=== PATIENT | female | born 1990 | race Caucasian/White ===

== ENCOUNTER 2019-08-13 10:27 | Emergency (ER) | payer BC, SELFPAY ==
[2019-08-13 10:32] VITALS: BP 146/93; PULSE 73; RESP 19; TEMP 36.1; O2SAT 100
[2019-08-13 11:48] VITALS: BP 139/87; PULSE 67; RESP 17; O2SAT 99
[2019-08-13] MEDS: ONDANSETRON INJ 4 MG/2 ML VIAL IV PUSH (12:02)
[2019-08-13] MEDS: MORPHINE SULFATE 2 MG/ML INJ IV PUSH (12:02)
--- NOTE | 2019-08-13 12:11 | PM.CNGS ---
Assessment and Plan Assessment and plan (1) Laceration of right breast: Qualifiers: Encounter type: initial encounter Qualified Code(s): S21.011A - Laceration without foreign body of right breast, initial encounter Code(s): S21.011A - Laceration without foreign body of right breast, initial encounter Status: Acute Assessment and Plan: superficial wounds as noted, wound to be washout in ED, IV abx and then po abx x 10 days, instructions given for local wound care, f/u 10 days (2) Laceration of left forearm: Qualifiers: Encounter type: initial encounter Qualified Code(s): S51.812A - Laceration without foreign body of left forearm, initial encounter Code(s): S51.812A - Laceration without foreign body of left forearm, initial encounter Status: Acute Assessment and Plan: superficial wounds, wound to be washed out in ED, IV then po abx x 10 days, instructions for local wound care, f/u 10 days History of Present Illness Consult details Consult date: 08/13/19 Reason for consult: wound care (right nipple laceration) Narrative: Pt is a 29 y/o F presenting to ED s/p dog bite to L forearm and R nipple. Pt reports bite happened this am and she immediately washed wounds. Pt reports she is up to date on tetnus, etc. Review of Systems Constitutional: Constitutional: Denies anorexia, Denies chills, Denies fatigue, Denies headache(s), Denies malaise, Denies poor appetite, Denies weight gain and Denies weight loss Eyes: Eyes: Denies loss of vision ENT: Denies dysphagia, Denies headache(s), Denies hearing loss and Denies sore throat Cardiovascular: Cardiovascular: Denies chest pain, Denies syncope, Denies irregular heart rhythm, Denies leg edema and Denies dyspnea Respiratory: Respiratory: Denies cough and Denies dyspnea Gastrointestinal: Gastrointestinal: Denies abdominal pain, Denies bloating, Denies change in bowel habits, Denies change in stool character, Denies constipation, Denies dysphagia, Denies heartburn, Denies diarrhea, Denies nausea and Denies vomiting Genitourinary: Genitourinary: Denies urinary frequency, Denies dysuria and Denies urinary urgency Musculoskeletal: Musculoskeletal: Denies myalgias, Denies arthralgias and Denies muscle cramps Integumentary/Breasts: Skin/Breast: Denies non-healing lesions and Denies rash Comments: laceration/bite to R nipple/areolar complex Neurologic: Denies syncope, Denies headache(s) and Denies loss of vision Endocrine: Endocrine: Denies change in body appearance and Denies fatigue Hematologic/Lymphatic: Hematologic/Lymphatic: Denies easy bleeding, Denies easy bruising and Denies lymphadenopathy PMFSH Family History Family History Father Hypertension Mother Patient's mother is in good health Grandparent Acute myocardial infarction Family history of chronic obstructive pulmonary disease Family history of lymphoma Family history of throat cancer Social History Social History Smoking status: Light tobacco smoker Alcohol intake: current Meds Home Medications and Allergies Home Medications Medication Instructions Recorded Confirmed Type levothyroxine 100 mcg tablet 100 mcg PO DAILY #30 tablet 07/05/19 Rx Allergies Allergy/AdvReac Type Severity Reaction Status Date / Time No Known Allergies Allergy Verified 12/30/17 15:40 Vital Signs Vital Signs - 24 hr 08/13/19 10:32 08/13/19 11:48 Temperature 36.1 C L Pulse Rate 73 67 Respiratory Rate 19 17 Blood Pressure 146/93 H 139/87 Pulse Oximetry 100 99 Exam Const: General: cooperative, no acute distress and well developed Orientation/consciousness: patient oriented x3 HENMT: Head: normocephalic and atraumatic Mouth: Yes moist mucous membranes Teeth and gingiva: dentition normal Eyes: Pupils: Equal, round and reactive pupils present
--- NOTE | 2019-08-13 12:25 | ED.WOUNDLAC ---
HPI - Wound/Laceration General Chief Complaint: Wound/Laceration Stated Complaint: dog bite Time Seen by Provider: 08/13/19 11:12 Source: patient Mode of arrival: ambulatory Limitations: no limitations History of Present Illness HPI narrative: Patient presents with chief complaint of laceration on her left forearm into her right nipple after being bitten by her own dog. Patient says she is up-to-date on tetanus and her dog is up-to-date on all vaccinations. Patient reports pain and bleeding to the nipple area along with nausea. Patient reports pain to the area and nausea due to the pain. Patient denies any other injuries or concerns. Patient denies any allergies to any antibiotics. Patient denies . Related Data Allergies Allergy/AdvReac Type Severity Reaction Status Date / Time No Known Allergies Allergy Verified 12/30/17 15:40 Review of Systems Review of Systems: Narrative: CONSTITUTIONAL: Denies fever, chills, or sweats. EYES: Denies visual changes, redness, or discharge. ENT: Denies rhinorrhea, congestion, sore throat, or otalgia. CARDIOVASCULAR: Denies chest pain, palpitations, or edema. RESPIRATORY: Denies cough or dyspnea. GASTROINTESTINAL: Denies abdominal pain, nausea, vomiting, or diarrhea. GENITOURINARY: Denies dysuria or hematuria. SKIN: Reports dog bite laceration Denies rash or itching. MUSCULOSKELETAL: Denies back pain, joint pain, or myalgia. NEUROLOGIC: Denies headache, numbness, dizziness, or weakness. PSYCHIATRIC: Denies anxiety or depression. [facility] Past Medical History Medical History (Updated 08/13/19 @ 12:32 by David Galvez PA-C) Anxiety Hypothyroidism Family History Family History Father Hypertension Mother Patient's mother is in good health Grandparent Acute myocardial infarction Family history of chronic obstructive pulmonary disease Family history of lymphoma Family history of throat cancer Social History Social History Smoking status: Light tobacco smoker Alcohol intake: current Exam Narrative: Exam Narrative: GENERAL: Well-appearing, well-nourished, and in no acute distress. HEAD: Normocephalic, atraumatic. EYES: PERRLA and EOMI. ENT: Nares clear, no rhinorrhea or epistaxis. Mucous membranes moist. Oropharynx without tonsillar hypertrophy exudate or other lesions. Bilateral TMs pearly meade nonbulging. No hemotypanum. NECK: Supple. No adenopathy or masses. No carotid bruits or JVD CHEST: two vertical unapproximated lacerations approximately 2cm each to right nipple. 1 extending through the nipple. No active bleeding. lacerations superficial. No respiratory distress. No tachypnea. ABDOMEN: Soft, nontender, nondistended, normal active bowel sounds. EXTREMITIES: Normal range of motion. No edema. SKIN: Warm, dry, no rash. NEURO: No focal deficits. Alert and oriented x3. PSYCH: Normal mood and affect. Course Vital Signs Vital signs: Vital Signs Temperature 97.0 F L 08/13/19 10:32 Pulse Rate 73 08/13/19 10:32 Respiratory Rate 19 08/13/19 10:32 Blood Pressure 146/93 H 08/13/19 10:32 Pulse Oximetry 100 08/13/19 10:32 Temperature 97.0 F L 08/13/19 10:32 Pulse Rate 67 08/13/19 11:48 Respiratory Rate 17 08/13/19 11:48 Blood Pressure 139/87 08/13/19 11:48 Pulse Oximetry 99 08/13/19 11:48 MDM - Wound/Laceration MDM Narrative Medical decision making narrative: In room consult with Dr Dave general surgeon. He reports patient should cleanse the area with antibacterial soap and apply antibacterial ointment. He believes that the best course of action for healing is to allow the wound to heal normally to avoid complication of abscess due to closing. He wants the patient to be prescribed Augmentin for 10 days and to follow-up in his office for reevaluation of wound healing. He is in agreement with [facility] in the emergency departme
[2019-08-13] MEDS: ceFAZolin 2 GM/D5W 50 ML 2 GM/50 ML BAG IVPB (12:32)
[2019-08-13 13:22] VITALS: BP 141/89; PULSE 60; RESP 16; O2SAT 98
== END 2019-08-13 13:24 | disposition home or self-care (01) ==
PROVIDERS: Emergency Provider Emergency Medicine; PCP Family Medicine
DX: S51.852A Open bite of left forearm, initial encounter (principal); S21.051A Open bite of right breast, initial encounter; E03.9 Hypothyroidism, unspecified; W54.0XXA Bitten by dog, initial encounter
CPT/HCPCS: 81025; 96365; 96375; 99284; J0690; J2270; J2405

== ENCOUNTER 2020-04-22 00:56 | Outpatient (CLI) | payer BC, SELFPAY ==
[2020-04-22 19:42] LABS: SARS-CoV-2 RNA PCR Negative
== END 2020-04-22 00:57 | disposition home or self-care (01) ==
LOC: ANHCOVIDDT 00:57
PROVIDERS: PCP Family Medicine; Visit Provider Obstetrics & Gynecology
DX: Z01.812 Encounter for preprocedural laboratory examination (principal); Z20.822 Contact with and (suspected) exposure to COVID-19
CPT/HCPCS: C9803; U0003

== ENCOUNTER 2020-04-23 01:45 | Day surgery (SDC) | payer BC, SELFPAY ==
[2020-04-21 16:36] VITALS: BMI 36.8
--- NOTE | 2020-04-22 10:29 | P.PNAN_ITS ---
Anes - Initial Pre Proc Eval Procedure: Operation Date: 04/23/20 16:15 Proposed Procedures p Suction Dilatation And Curettage - Cortes Sun MD Date/Time: 04/22/20 10:29 Surgeon: Cortes Sun MD Pre Op Diagnosis: Missed Ab Patient Data Age: 30 Gender: F Height: 1.69 m Weight: 105.23 kg Allergies Allergy/AdvReac Type Severity Reaction Status Date / Time No Known Allergies Allergy Verified 04/23/20 14:07 Home Medications Medication Instructions Recorded Confirmed Type levothyroxine 100 mcg tablet 100 mcg PO DAILY #30 tablet 04/14/20 04/21/20 Rx 1 cap PO DAILY 04/21/20 04/21/20 History escitalopram oxalate 20 mg PO DAILY 04/21/20 04/21/20 History ondansetron HCl 4 mg PO DAILY PRN 04/21/20 04/21/20 History progesterone micronized 200 mg PO DAILY 04/21/20 04/21/20 History Patient hx anesthesia problems: none Family hx anesthesia problems: none [facility] Past Medical History Medical History Anxiety Asthma Hypothyroidism Family History Family History Father Hypertension Mother Patient's mother is in good health Grandparent Acute myocardial infarction Family history of chronic obstructive pulmonary disease Family history of lymphoma Family history of throat cancer Social History Social History Years smoked: 8 Smoking status: Former smoker Smoking end date: 04/18/19 Additional smoking assessment comments: SMOKED FOR 8 YEARS AND QUIT ABOUT A YEAR AGO Alcohol intake: current Substance use: current Substance use type: marijuana Other substance usage details: ONCE A/WEEK WHEN NOT Living arrangements: with family Gender identity (if verbalized by the patient): Female Spiritual care concerns: No Anes - Eval Final PreProcedure Day of Procedure 04/22/20 10:29 Patient weight: obese Heart: regular rate and rhythm Lungs: clear to auscultation and normal air movement Airway: Mallampati scale class II Neurological: alert and oriented Last oral intake: >/= 8 hours ASA classification: III Emergent: no Anesthetic plan: proceed Anesthesia type and monitoring: general GIVS and standard monitoring Informed Consent: The patient's anesthetic plan and its attendant risks and benefits were discussed with the patient/family/POA. Questions were solicited and answers provided to the satisfaction of the patient/family/POA.
[2020-04-23 04:50] VITALS: BP 124/73; PULSE 59; RESP 16; TEMP 36.9; O2SAT 98
--- NOTE | 2020-04-23 12:16 | PM.IMHP ---
H&P: HPI History of Present Illness Date/Time: 04/23/20 12:16 Chief Complaint: Miscarriage Narrative: 30 y/o G1 at 9 weeks gestation. She had some vaginal bleeding. On ultrasound exam on 04/21/20, a triplet gestation was noted with no cardiac motion in any of the embryos. She is interested in surgical management of her problem. Review of Systems Review of Systems: All systems reviewed & are unremarkable except as noted in HPI and below PMFSH Past Medical History Medical History Anxiety Asthma Hypothyroidism Family History Family History Father Hypertension Mother Patient's mother is in good health Grandparent Acute myocardial infarction Family history of chronic obstructive pulmonary disease Family history of lymphoma Family history of throat cancer Social History Social History Years smoked: 8 Smoking status: Former smoker Smoking end date: 04/18/19 Additional smoking assessment comments: SMOKED FOR 8 YEARS AND QUIT ABOUT A YEAR AGO Alcohol intake: current Substance use: current Substance use type: marijuana Other substance usage details: ONCE A/WEEK WHEN NOT Living arrangements: with family Gender identity (if verbalized by the patient): Female Spiritual care concerns: No Meds Home Medications and Allergies Home Medications Medication Instructions Recorded Confirmed Type levothyroxine 100 mcg tablet 100 mcg PO DAILY #30 tablet 04/14/20 04/21/20 Rx 1 cap PO DAILY 04/21/20 04/21/20 History escitalopram oxalate 20 mg PO DAILY 04/21/20 04/21/20 History ondansetron HCl 4 mg PO DAILY PRN 04/21/20 04/21/20 History progesterone micronized 200 mg PO DAILY 04/21/20 04/21/20 History Allergies Allergy/AdvReac Type Severity Reaction Status Date / Time No Known Allergies Allergy Verified 04/21/20 16:37 Exam Const: Orientation/consciousness: patient oriented x3 Other: Well-developed, well-nourished female in no acute distress. Neck: Thyroid: thyroid normal Lymphatic: no lymphadenopathy noted (in neck, axilla or inguinal nodes) Resp: Effort & Inspection: normal respiratory effort Auscultation: clear to auscultation bilaterally Cardio: Rate: regular rate Rhythm: regular rhythm Heart sounds: S1 normal heart sound present and S2 normal heart sound present GI: Other: ABD: Soft, nontender, nondistended. No guarding or rebound tenderness. No hepatosplenomegaly. : General: Yes no CVA tenderness Other: Deferred to OR Back/Spine/Pelvis: Back: no CVA tenderness Skin: General skin exam: normal color and no rashes or lesions noted Neuro: General: patient oriented x3 Extrem: Other: Extremities: nontender with no edema Psych: Mental Status: mental status grossly normal Affect: normal affect Assessment and Plan Assessment and plan (1) Missed : Code(s): O02.1 - Missed Status: Acute Assessment and Plan: I have offered her expectant vs surgical management. She desires the latter. Specifically, I have offered her a dilation and suction curettage. She understands risks of surgery to include risks of anesthesia, risks of pain, infection, bleeding, blood products, thromboembolic phenomena and damage to adjacent structures such as bowel, bladder, ureters, blood vessels and nerves. She understands all these risks and elects to proceed with surgery.
--- NOTE | 2020-04-23 14:26 | WPDHPUPDATE1 ---
History and Physical Update Update Date/Time: 04/23/20 14:26 History and Physical has been reviewed, including an updated exam of the patient. There are NO changes in the patient's condition. Risks, benefits, and alternatives have been discussed and questions answered. Patient agrees to proceed with procedure.
[2020-04-23] MEDS: ONDANSETRON INJ 4 MG/2 ML VIAL IV PUSH (14:45)
[2020-04-23] MEDS: LACTATED RINGERS 1,000 ML 30 ML IV CONT (14:45)
[2020-04-23] MEDS: ACETAMINOPHEN 500 MG TABLET 1000 MG PO (14:46)
--- NOTE | 2020-04-23 15:58 | PM.PROC ---
Procedure Note - Detailed Date of procedure: 04/23/20 Pre-op diagnosis: Missed Ab Post-op diagnosis: same Procedure performed: Dilation and suction curettage Description of procedure: The patient was taken to the operating room where she was prepared and draped in the usual sterile fashion in the dorsal lithotomy position. The bladder was drained with a red rubber catheter. A sterile speculum was placed into the vagina. The anterior lip of the cervix was grasped with a single-tooth tenaculum. Ten mL of 1% lidocaine was administered in a paracervical block. The cervix was gently dilated using Hegar dilators until an 8mm dilator could be passed. The 8mm curved tip suction curette was advanced. Suction curettage was performed and products of conception were aspirated. Sharp curettage was then performed until a good uterine cry was noted. A final pass with the suction curette was made. The tenaculum was removed. Hemostasis was excellent. Sponge, lap, needle and instrument counts were correct. The patient was taken to the recovery room in stable condition. I was present and scrubbed for the entire procedure. Implants: None Anesthesia: MAC and local (1% lidocaine) Surgeon: Cortes Sun MD Estimated blood loss (mL): 200 Drains: No Packing: No Pathology: yes (endometrial curettings) Complications: None Condition: stable Disposition: PACU Findings: Products of conception noted.
[2020-04-23 16:05] VITALS: BP 120/72; PULSE 72; RESP 16; O2SAT 98
[2020-04-23 16:35] VITALS: BP 125/65; PULSE 68; RESP 14
== END 2020-04-23 17:05 | disposition home or self-care (01) ==
PROVIDERS: PCP Family Medicine; Visit Provider Obstetrics & Gynecology
PROC: (CPT 59820; principal; 2020-04-23 16:15)
DX: O02.1 Missed abortion (principal); E03.9 Hypothyroidism, unspecified; F41.9 Anxiety disorder, unspecified; Z87.891 Personal history of nicotine dependence
CPT/HCPCS: 59820; 36415; 85461; 88305; A9270; C9803; J1885; J2250; J2405; J2590; J2704; J3010; J7120; U0003

== ENCOUNTER 2020-04-30 02:55 | Day surgery (SDC) | payer BC, SELFPAY ==
[2020-04-29 13:13] VITALS: BMI 36.8
--- NOTE | 2020-04-29 15:39 | PM.IMHP ---
H&P: HPI History of Present Illness Date/Time: 04/29/20 15:40 Chief Complaint: retained products of conception abnormal uterine bleeding Narrative: Yesi Turcios is a 30 year old female Who presents for suction D&C for heavy vaginal bleeding. Patient initially underwent suction D&C on 04/23/23 spontaneous missed of triplet . Patient states she had 3-4 days of no bleeding after the procedure. She states that yesterday she started having bright red vaginal bleeding filling a pad every 30 minutes. She reports passing large clots. She also reports intense pelvic pain and cramping refractory to tramadol and Evergreen. Patient had pelvic ultrasound performed in the office which showed heterogenous material within the endometrial cavity. Review of Systems Cardiovascular: Cardiovascular: Denies chest pain, Denies leg edema, Denies palpitations, Denies dyspnea and Denies dyspnea on exertion Respiratory: Respiratory: Denies cough, Denies dyspnea and Denies dyspnea on exertion Gastrointestinal: Gastrointestinal: Denies abdominal pain, Denies constipation, Denies diarrhea, Denies nausea and Denies vomiting Genitourinary: Genitourinary: Denies hematuria, Denies urinary frequency, Denies dysuria, Denies pelvic pain, Denies urinary incontinence and Denies vaginal discharge Neurologic: Reports system reviewed and no additional complaints, except as documented Psychiatric: Psychiatric: Reports no additional psychiatric complaints Endocrine: Endocrine: Denies palpitations PMFSH Past Medical History Medical History (Updated 04/29/20 @ 15:42 by Douglas Almaguer MD) Anxiety Asthma Hypothyroidism Family History Family History Father Hypertension Mother Patient's mother is in good health Grandparent Acute myocardial infarction Family history of chronic obstructive pulmonary disease Family history of lymphoma Family history of throat cancer Social History Social History Smoking packs per day: 1 Smoking cigarettes per day: 20.0 Years smoked: 8 Smoking pack-years: 8.00 Smoking status: Former smoker Smoking end date: 02/17/20 Additional smoking assessment comments: SMOKED FOR 8 YEARS AND QUIT ABOUT A YEAR AGO Alcohol intake: current Drinks per week: 3 Substance use: never Substance use type: marijuana Other substance usage details: ONCE A/WEEK WHEN NOT Living arrangements: with family Additional living arrangements comments: [facility] Gender identity (if verbalized by the patient): Female Spiritual care concerns: No Meds Home Medications and Allergies Home Medications Medication Instructions Recorded Confirmed Type escitalopram oxalate 10 mg PO QAM 04/21/20 04/29/20 History ondansetron HCl 4 mg PO DAILY PRN 04/21/20 04/29/20 History hydrocodone-acetaminophen [Evergreen] 1 - 2 tablet PO Q6H PRN #20 tablet 04/23/20 04/29/20 Rx alprazolam [Xanax] 0.5 mg PO BID PRN 04/29/20 04/29/20 History levothyroxine 100 mcg PO QAM 04/29/20 04/29/20 History Allergies Allergy/AdvReac Type Severity Reaction Status Date / Time No Known Allergies Allergy Verified 04/29/20 13:09 Exam Const: General: no acute distress Eyes: EOM: EOMs intact bilaterally Neck: Neck: supple Thyroid: thyroid normal Chest: Breast/axilla inspection: normal inspection of the breasts Breast/axilla palpation: normal palpation of the breasts, normal palpation of the axillae and no axillary lymphadenopathy Resp: Effort & Inspection: normal respiratory effort Auscultation: clear to auscultation bilaterally Cardio: Rate: regular rate Rhythm: regular rhythm GI: Inspection: non-distended GI Palp: Yes Soft to palpation, No Tenderness to palpation present (GI) and No Guarding due to palpation present (GI) Auscultation:
[2020-04-30 06:11] VITALS: BP 126/78; PULSE 72; RESP 20; TEMP 36.6; O2SAT 98
[2020-04-30] MEDS: ACETAMINOPHEN 500 MG TABLET 1000 MG PO (06:12)
[2020-04-30] MEDS: DOXYCYCLINE HYCLATE 100 MG TABLET PO (06:14)
[2020-04-30] MEDS: LACTATED RINGERS 1,000 ML 30 ML IV CONT (06:25)
--- NOTE | 2020-04-30 06:38 | P.PNAN_ITS ---
Anes - Eval Final PreProcedure Day of Procedure 04/30/20 06:38 Patient weight: obese Heart: regular rate and rhythm Lungs: clear to auscultation Airway: Mallampati scale class II Neurological: alert and oriented Last oral intake: >/= 8 hours ASA classification: III Emergent: no Anesthetic plan: proceed Anesthesia type and monitoring: general GIVS and standard monitoring Informed Consent: The patient's anesthetic plan and its attendant risks and b enefits were discussed with the patient/family/POA. Questions were solicited and answers provided to the satisfaction of the patient/family/POA.
--- NOTE | 2020-04-30 07:20 | WPDHPUPDATE1 ---
History and Physical Update Update Date/Time: 04/30/20 07:20 History and Physical has been reviewed, including an updated exam of the patient. There are NO changes in the patient's condition. Risks, benefits, and alternatives have been discussed and questions answered. Patient agrees to proceed with procedure.
[2020-04-30 07:47] VITALS: BP 111/61; PULSE 80; RESP 14; O2SAT 100
[2020-04-30 07:47] LABS: Hematocrit 38.5 % (37.0-47.0); Hemoglobin 12.7 g/dL (12.0-15.0)
--- NOTE | 2020-04-30 07:49 | P.OP_ITS ---
Procedure Note - Detailed Date of procedure: 04/30/20 Pre-op diagnosis: missed AB Post-op diagnosis: same Procedure performed: Suction dilation and curettage Description of procedure: Antibiotics: Doxycycline Findings: uterus normal size, cervix not dilated, retained products of conception Complications: none Specimens: endometrial contents- products of conception EBL: 20 mL Indications: Patients was found to have an intrauterine MAB on pelvic US last week. She underwent suction D&C and presented one week post with pelvic pain and heavy vaginal bleeding. Pelvic US showed heterogeneous material still within the uterus. She elected for surgical management via Suction D&C. Procedure: The patient was taken to the operating room after a missed had been noted on on transvaginal ultrasound. The risks, benefits and alternatives of the procedure were reviewed with the patient and informed consent was obtained. The patient was taken to the OR and anesthesia was noted to be adequate. The patient was placed in the dorsol ithotomy position. Pelvic exam was performed with findings noted above. The patient was prepped and draped in the usual sterile fashion. Bassett retractors were placed anteriorly and posteriorly in the vagina and the cervix was grasped with an Tenaculum clamp. The cervix was dilated further to allow for passage of a 8mm suction curette. The 8mm suction curette was gently advanced to the fundus, suction was activated, and the tip was rotated while being withdrawn to clear the uterus of products all under ultrasound guidance. This suction process was repeated 4 additional times due to the quantity of material in the uterus. The sharp curette was introduced and advanced to the fundus to remove any remaining products. The suction curette was reintroduced one final time to ensure all products had been removed. The Tenaculum clamp was removed. Good hemostasis was noted. Instrument, sponge, and sharp counts were correct. Patient tolerated the procedure well and was taken to the recovery room in stable condition. Anesthesia: MAC Surgeon: Douglas Almaguer MD Estimated blood loss (mL): 20 Urine output (mL): 10 Drains: No Packing: No Pathology: yes (uterine contents, products of conception) Complications: No immediate complications Condition: stable Disposition: PACU
--- NOTE | 2020-04-30 08:05 | SUR.PHASEII ---
0747; PT INTO [facility] PER STRETCHER. SPOUSE WAITING IN ROOM.
[2020-04-30 08:15] VITALS: BP 122/71; PULSE 68; RESP 16; O2SAT 100
[2020-04-30] MEDS: DOXYCYCLINE HYCLATE 100 MG TABLET 200 MG PO (08:27)
[2020-04-30] MEDS: oxyCODONE HCL (*CRX) 5 MG TAB IR PO (08:30)
--- NOTE | 2020-04-30 08:37 | SUR.PHASEII ---
PT AWAKE AND ALERT. STATES SHE IS READY TO GO HOME. WANTS TO GET DRESSED.
[2020-04-30 08:40] VITALS: BP 123/75; PULSE 61; RESP 14
== END 2020-04-30 08:55 | disposition home or self-care (01) ==
PROVIDERS: PCP Family Medicine; Visit Provider Student in an Organized Health Care Education/Training Program
PROC: (CPT 59812; principal; 2020-04-30 07:30)
DX: O03.4 Incomplete spontaneous abortion without complication (principal); F41.9 Anxiety disorder, unspecified; E03.9 Hypothyroidism, unspecified
CPT/HCPCS: 59812; 36415; 85014; 85018; 88305; A9270; J2250; J2704; J3010; J7120

== ENCOUNTER 2020-11-27 08:03 | Emergency (ER) | payer BC, SELFPAY ==
--- NOTE | ~2020-11-27 | XR_ITS ---
EXAMINATION: XR chest 2V DATE: 11/27/2020 08:42 INDICATION: Cough TECHNIQUE: PA and lateral views of the chest are obtained. COMPARISON: None available FINDINGS: The lungs are free of acute opacities. There is no pleural effusion or pneumothorax. The ca rdiomediastinal silhouette is normal. The visualized bones and soft tissues are unremarkable. IMPRESSION: 1. No acute cardiopulmonary abnormality. Reviewed, dictated and finalized at location B.
[2020-11-27 08:10] VITALS: BP 140/88; PULSE 76; RESP 18; TEMP 37.1; O2SAT 98
--- NOTE | 2020-11-27 08:13 | ED.URI ---
HPI - URI/Sore Throat General Chief Complaint: Upper Respiratory Infection Stated Complaint: upper respiratory Time Seen by Provider: 11/27/20 08:20 Source: patient, RN notes reviewed and old records reviewed Mode of arrival: ambulatory Limitations: no limitations History of Present Illness HPI Narrative: 30 year old female who presents to [facility] care with complaints of cough,some wheezing since Tuesday with low grade grade temperatures below 100F for 4 days. Patient does have history of asthma and is using her Pro Air inhaler and taking Mucinex and saline nasal spray. Patient had rapid COVID test on Tuesday and PCR on Tuesday which was negative also. 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 MD elicited complaint: cough Pertinent past history: asthma Related Data Home Medications Medication Instructions Recorded Confirmed escitalopram oxalate 10 mg PO QAM 04/21/20 11/27/20 levothyroxine 100 mcg PO QAM 04/29/20 11/27/20 11/27/20 Allergies Allergy/AdvReac Type Severity Reaction Status Date / Time No Known Allergies Allergy Verified 11/27/20 08:27 Review of Systems Review of Systems: CONSTITUTIONAL: Low grade fevers < 100F, chills, or sweats. EYES: Denies visual changes, redness, or discharge. ENT: Positive rhinorrhea, congestion,no sore throat, positive otalgia. CARDIOVASCULAR: Denies chest pain, palpitations, or edema. RESPIRATORY: Positive for cough and wheezing, denies any acute dyspnea. GASTROINTESTINAL: Denies abdominal pain, nausea, vomiting, or diarrhea. GENITOURINARY: Denies dysuria or hematuria. SKIN: Denies rash or itching. MUSCULOSKELETAL: Denies back pain, joint pain, or myalgia. NEUROLOGIC: Denies headache, numbness, or weakness. PSYCHIATRIC: Positive history of anxiety or depression. All systems reviewed & are unremarkable except as noted in HPI and below PMFSH Past Medical History Medical History Anxiety Asthma Hypothyroidism Surgical History Surgical History History of placement of ear tubes History of tonsillectomy Family History Family History Father Hypertension Mother Patient's mother is in good health Grandparent Acute myocardial infarction Family history of chronic obstructive pulmonary disease Family history of lymphoma Family history of throat cancer Social History Social History (Updated 11/27/20 @ 08:45 by Layla Gardner NP) Smoking packs per day: 0.5 Smoking cigarettes per day: 10.0 Years smoked: 0.5 Smoking pack-years: 0.25 Smoking status: Current every day smoker Tobacco type: cigarettes Smoking end date: 02/17/20 Additional smoking assessment comments: SMOKED FOR 8 YEARS AND QUIT ABOUT A YEAR AGO started again about 6 months Alcohol intake: current Drinks per week: 3 Alcohol use details: social Substance use: never Substance use type: marijuana Other substance usage details: ONCE A/WEEK WHEN NOT Living arrangements: with family Additional living arrangements comments: [facility] Gender identity (if verbalized by the patient): Female Spiritual care concerns: No Comments At time of signature, agree with nursing past medical, surgical, social and family history. There is no relevant family history pertinent to the presenting complaint Exam Narrative: GENERAL: Well-appearing, well-nourished, and in no acute distress. HEAD: Normocephalic, atraumatic. EYES: PERRLA and EOMI. ENT: Nares red, yellow rhinorrhea no epistaxis. Mucous membranes moist. TM's normal with good light reflex, throat red with no lesions or exudate, no tonsils present, post nasal drainage. NECK: Supple.no Lymphadenopathy CHEST: Coarse with scattered wheezing on auscultation. No acute respiratory distr
== END 2020-11-27 09:17 | disposition home or self-care (01) ==
PROVIDERS: Emergency Provider Registered Nurse; PCP Family Medicine
DX: J01.90 Acute sinusitis, unspecified (principal); J45.41 Moderate persistent asthma with (acute) exacerbation; F17.210 Nicotine dependence, cigarettes, uncomplicated; F41.9 Anxiety disorder, unspecified; J45.909 Unspecified asthma, uncomplicated; E03.9 Hypothyroidism, unspecified
CPT/HCPCS: 71046; 99213; G0463

== ENCOUNTER → 2021-04-16 02:19 | Outpatient (CLI) | payer BC, SELFPAY ==
[2021-04-16 20:33] LABS: SARS-CoV-2 RNA PCR Negative
== END ==
PROVIDERS: PCP Family Medicine; Visit Provider Family Medicine
DX: R51.9 Headache, unspecified (principal); Z20.822 Contact with and (suspected) exposure to COVID-19
CPT/HCPCS: C9803; U0003; U0005

== ENCOUNTER 2021-07-01 09:14 | Outpatient (RCR) | payer BC, SELFPAY | END 2021-08-04 14:28 | disposition home or self-care (01) | LOC: ANHDMC 09:14 | PROVIDERS: PCP Family Medicine; Visit Provider Obstetrics & Gynecology | DX: O24.319 Unspecified pre-existing diabetes mellitus in pregnancy, unspecified trimester (principal); Z3A.00 Weeks of gestation of pregnancy not specified; Z71.89 Other specified counseling | CPT/HCPCS: G0108 ==

== ENCOUNTER 2021-08-03 08:05 | Outpatient (RCR) | payer BC, SELFPAY ==
[2021-07-13 08:42] VITALS: BP 125/80; PULSE 84
[2021-07-20 15:03] VITALS: BP 121/66; PULSE 82
[2021-07-27 13:05] VITALS: BP 117/63; PULSE 81
[2021-08-03 08:40] VITALS: BP 122/61; PULSE 82
== END 2021-08-24 08:22 | disposition home or self-care (01) ==
LOC: ANHOBOP 08:05
PROVIDERS: PCP Family Medicine; Visit Provider Obstetrics & Gynecology
DX: O24.419 Gestational diabetes mellitus in pregnancy, unspecified control (principal); Z3A.33 33 weeks gestation of pregnancy; Z3A.34 34 weeks gestation of pregnancy; Z3A.35 35 weeks gestation of pregnancy; Z3A.36 36 weeks gestation of pregnancy
CPT/HCPCS: 59025

== ENCOUNTER 2021-08-06 16:51 | Inpatient (IN) | payer BC, SELFPAY ==
[2021-08-06] VITALS (19 sets, daily range): BP systolic 105–133; BP diastolic 59–86; PULSE 71–85; RESP 16; TEMP 36.8–37.2; O2SAT 97; BMI 40.5
[2021-08-06 17:39] LABS: Glucose Point of Care 152 mg/dl (65-105)
[2021-08-06 17:41] LABS: Basophils Absolute Auto 0.1 K/mm3 (0.0-0.1); Basophils Percent Auto 0.3 % (0.2-1.2); Eosinophils Absolute Auto 0.2 K/mm3 (0-0.3); Eosinophils Percent Auto 1.2 % (0-4.4); Immature Granulocyte Absolute 0.26 K/mm3 (0.00-0.031); Immature Granulocyte Percent A 1.7 % (0-0.5); Lymphocytes Absolute Auto 2.25 K/mm3 (0.9-3.2); Lymphocytes Percent Auto 15.1 % (18.3-44.2); Mean Corpuscular HGB Conc 32.4 g/dl (32-36); Mean Corpuscular Hemoglobin 29.2 pg (26-34); Mean Platelet Volume 12.5 fl (7.4-10.4); Monocytes Absolute Auto 1.1 K/mm3 (0.1-0.6); Monocytes Percent Auto 7.2 % (2.6-8.5); Neutrophils Absolute Auto 11.1 K/mm3 (1.3-6.7); Neutrophils Percent Auto 74.5 % (45.5-73.1); Platelet Count Result 240 k/mm3 (150-375); Red Blood Count 4.11 M/mm3 (4.2-5.4); Red Cell Distribution Width 14.9 % (11.5-14.5); White Blood Count 14.9 K/mm3 (4.5-10.0)
--- NOTE | 2021-08-06 17:50 | LDADM ---
This patient, Yesi Turcios, was admitted to Labor/Delivery/Recovery 107 on 08/06/21 at 16:51. Plans for labor, pain management and were discussed with patient. Patient/family oriented to hospital policies and general routines including ID bracelet, bed and alarms, visiting hours, pain management, procedures, bathroom and other care routines, personal items, smoking policy, room service/diet and guest tray routines, security routines, and visiting hours. Patient/Family are encouraged to report perceived risks to care and to ask questions if they do not understand what they are told or what they should do. See OBIX for further documentation.
--- NOTE | 2021-08-06 18:14 | WPDANESEPP ---
Anes - Eval Pre Procedure Procedure: Labor epidural Date/Time: 08/06/21 18:14 Surgeon: Tenzin Preop Diagnosis: Abd pain with contractions Pre Op Diagnosis: IOL Patient Data Age: 31 Gender: F Height: Weight: Last Vital Signs Pulse 83 08/06/21 18:01 BP 118/66 08/06/21 18:01 Allergies Allergy/AdvReac Type Severity Reaction Status Date / Time No Known Allergies Allergy Verified 07/27/21 12:29 Home Medications Medication Instructions Recorded Confirmed Type escitalopram oxalate 5 mg tablet 5 mg PO DAILY 02/05/21 08/06/21 History levothyroxine 100 mcg tablet 100 mcg PO QAM #30 tablet 02/19/21 08/06/21 Rx famotidine [Pepcid] 20 mg PO BID 07/27/21 08/06/21 History glyburide 10 mg PO HS 07/27/21 08/06/21 History PNV cmb#95-ferrous fumarate-FA 1 tablet PO DAILY 08/06/21 08/06/21 History [] docusate sodium [Colace] 100 mg PO DAILY 08/06/21 08/06/21 History Laboratory Tests 08/06/21 08/06/21 08/06/21 17:30 17:35 17:35 WBC 14.9 K/mm3 H K/mm3 (4.5-10.0) RBC 4.11 M/mm3 L M/mm3 (4.2-5.4) Hgb 12.0 g/dL g/dL (12.0-15.0) Hct 37.0 % % (37.0-47.0) MCV 90.0 fl fl (80-100) MCH 29.2 pg pg (26-34) MCHC 32.4 g/dl g/dl (32-36) RDW 14.9 % H % (11.5-14.5) Plt Count 240 k/mm3 k/mm3 (150-375) MPV 12.5 fl H fl (7.4-10.4) Immature Gran % (Auto) 1.7 % H % (0-0.5) Neut % (Auto) 74.5 % H % (45.5-73.1) Lymph % (Auto) 15.1 % L % (18.3-44.2) [place] % (Auto) 7.2 % % (2.6-8.5) Eos % (Auto) 1.2 % % (0-4.4) Baso % (Auto) 0.3 % % (0.2-1.2) Lymph # (Auto) 2.25 K/mm3 K/mm3 (0.9-3.2) [place] # (Auto) 1.1 K/mm3 H K/mm3 (0.1-0.6) Eos # (Auto) 0.2 K/mm3 K/mm3 (0-0.3) Baso # (Auto) 0.1 K/mm3 K/mm3 (0.0-0.1) Abs Immat Gran (auto) 0.26 K/mm3 H K/mm3 (0.00-0.031) Absolute Neuts (auto) 11.1 K/mm3 H K/mm3 (1.3-6.7) Absolute Nucleated RBC 0.0 K/mm3 K/mm3 (0.0-0.012) Nucleated RBC % 0.0 % % (0.0-0.2) POC Capillary Glucose 152 mg/dl H mg/dl (65-105) RPR Pending Patient hx anesthesia problems: none Family hx anesthesia problems: none Results Review: All pre-operative results and documents have been reviewed as part of the pre-operative evaluation. [facility] Past Medical History Medical History Acute bronchitis Anxiety Asthma BMI 39.0-39.9,adult Gestational diabetes mellitus (GDM) affecting Headache Heartburn during History of smoking Hypothyroidism Nasal congestion and not yet delivered Wellness examination Surgical History Surgical History History of placement of ear tubes History of tonsillectomy Family History Family History Father Hypertension Mother Autoimmune disorder Grandparent Acute myocardial infarction Family history of lymphoma Family history of throat cancer Family history of chronic obstructive pulmonary disease Sibling Autoimmune disorder Social History Social History Smoking packs per day: 1 Smoking cigarettes per day: 20.0 Years smoked: 10 Smoking pack-years: 10.00 Smoking status: Former smoker Tobacco type: cigarettes Second hand tobacco smoke exposure: No Smoking end date: 02/17/20 Additional smoking assessment comments: SMOKED FOR 8 YEARS AND QUIT ABOUT A YEAR AGO started again about 6 months Alcohol intake: former Drinks per week: 3 Alcohol use details: social Substance use: never Substance use type: marijuana Other substance usage details: ONCE A/WEEK WHEN NOT Additional living arrangements comments: [place]
[2021-08-06] MEDS: DINOPROSTONE 10 MG VAG INSERT VAGINAL (19:18)
[2021-08-06] MEDS: FAMOTIDINE 20 MG TABLET PO (21:56)
[2021-08-06] MEDS: glyBURIDE 5 MG TABLET 10 MG PO (21:56)
[2021-08-06 22:01] LABS: Glucose Point of Care 86 mg/dl (65-105)
[2021-08-06] MEDS: ZOLPIDEM TARTRATE (*CRX) 5 MG TABLET PO (22:01)
[2021-08-06 23:29] LABS: Amphetamine Screen Urine Negative (Negative); Barbiturate Screen Urine Negative (Negative); Benzodiazepines Screen Urine Negative (Negative); Cannabinoid Screen Urine Positive (Negative); Cocaine Screen Urine Negative (Negative); Methadone Screen Urine Negative (Negative); Opiate Screen Urine Negative (Negative); Phencyclidine Screen Urine Negative (Negative)
[2021-08-07] VITALS (206 sets, daily range): BP systolic 96–142; BP diastolic 46–107; PULSE 61–101; RESP 16–18; TEMP 36.4–38.1; O2SAT 82–100
[2021-08-07] MEDS: fentaNYL CITRATE INJ (*CRX) 100 MCG/2 ML VIAL 50 MCG IV PUSH ×2 (01:22→02:55)
[2021-08-07] MEDS: fentaNYL CITRATE INJ (*CRX) 100 MCG/2 ML VIAL IV PUSH ×2 (04:18→09:18)
[2021-08-07] MEDS: LACTATED RINGERS 1,000 ML 999 ML IV CONT ×2 (05:48→17:44)
[2021-08-07 07:20] LABS: Rapid Plasma Reagin Non-Reactive (NonReactive)
[2021-08-07] MEDS: OXYTOCIN 30 UNITS/NS 500 ML 30 UNITS/500 ML BAG 6 UNITS IV CONT (07:36)
[2021-08-07] MEDS: LEVOTHYROXINE SODIUM 100 MCG TABLET PO (07:36)
[2021-08-07 07:43] LABS: Glucose Point of Care 98 mg/dl (65-105)
[2021-08-07] MEDS: ESCITALOPRAM OXALATE 5 MG TABLET PO (08:40)
--- NOTE | 2021-08-07 08:45 | WPDOBADMIT ---
Obstetrics - Admit Note Admission Note: record reviewed. Additions to the history and/or subsequent changes in the physical findings follow. 31 y/o at 37 3/7 weeks with A2DM, poorly controlled, here for induction of labor. GBS neg. Cervidil overnight, has been withdrawn. AVSS NST reactive TOCO: contractions irregularly ABD soft, nontender, gravid, vertex EXT nontender Cervix 2/50/-2. AROM with clear fluid. Fasting blood glucose OK this morning. A: IUP at term with poorly controlled diabetes, here for induction of labor. P: Oxytocin. Anticipate . Monitor accuchecks.
[2021-08-07 10:56] LABS: Glucose Point of Care 93 mg/dl (65-105)
--- NOTE | 2021-08-07 12:25 | PM.OBPNLAB ---
Pain Control Date/time seen: 08/07/21 12:54 Comments: Comfortable with epidural. Pelvic Exam Dilation (cm): 4 Effacement (%): 90 station: -1 Comments: Accuchecks OK Contractions Contraction frequency: 3 Contraction pattern: Regular Status status: Category l Assessment and Plan Comments: Continue oxytocin.
[2021-08-07] MEDS: FAMOTIDINE 20 MG/2 ML VIAL IV PUSH (13:50)
[2021-08-07 15:49] LABS: Glucose Point of Care 78 mg/dl (65-105)
[2021-08-07 16:54] LABS: Glucose Point of Care 87 mg/dl (65-105)
[2021-08-07] MEDS: ONDANSETRON INJ 4 MG/2 ML VIAL IV PUSH (20:09)
[2021-08-07] MEDS: AMPICILLIN 2 GM/NS 100 ML 2 GM/100 ML BAG IVPB (20:27)
[2021-08-07 21:04] LABS: Glucose Point of Care 91 mg/dl (65-105)
[2021-08-08] VITALS (23 sets, daily range): BP systolic 105–155; BP diastolic 46–98; PULSE 65–100; RESP 16; TEMP 36.2–36.7; O2SAT 96–100
[2021-08-08] MEDS: AMPICILLIN 1 GM/NS 50 ML 1 GM/50 ML BAG IVPB (00:25)
[2021-08-08 00:31] LABS: Glucose Point of Care 107 mg/dl (65-105)
--- NOTE | 2021-08-08 03:39 | PM.OBPRVD ---
OB - Delivery Note Procedure Delivery date: 08/08/21 Procedure: Induction of labor with Events: Gestational Diabetes Induction method: Per Cervidil Protocol Delivery augmentation: Pitocin Delivery monitor: External FHT, External Uterine and Internal Uterine Route of delivery: Laceration Description: Perineal - 2nd Degree and Labial (bilateral) Delivery repair: vicryl (3-0) Specimen: Yes (cord blood, placenta) Quantitative Blood Loss (ml): 320 Anesthesia type: Local (1% lidocaine) Disposition: PACU Complications: Shoulder dystocia Narrative: 31 y/o at 37 4/7 weeks gestation who presented to the hospital for induction of labor due to poorly controlled A2DM. Cervidil was placed overnight. The following morning, the Cervidil was withdrawn and oxytocin was administered intravenously. Amniotomy was performed with return of clear fluid. She received an epidural for pain control. Accuchecks remained normal throughout labor, with a reading of 121 just before delivery. At 12 hours after ROM, her temp was 99.6F and ampicillin was started IV. Her labor progressed and her cervix dilated completely. She pushed with good effort and delivered the infant's head to the perineum. A shoulder dystocia was encountered. Fundal pressure was strictly avoided, as was traction on the head. McRobert's maneuver was employed. The posterior (right) shoulder was able to be grasped and rotated in a counterclockwise direction, freeing the anterior shoulder and effecting delivery of the body. The nose and mouth were bulb suctioned. After a delay, the cord was clamped and cut. The was handed off the field. Cord blood was collected. The placenta delivered spontaneously and was grossly normal in appearance. The usual 3 vessel cord was noted. Bilateral labial lacerations and a second degree midline perineal laceration were sustained. These were infiltrated with 10mL of 1% lidocaine for additional anesthesia, and were reapproximated using 3 0 Vicryl in the usual layered fashion. Excellent reapproximation of the normal anatomy resulted. Needle and instrument counts were correct. Uterine atony was addressed with 1000 mcg Cytotec UT. Hemostasis was subsequently excellent. The patient was taken to recovery room in stable condition. The went to the nursery in stable condition. I was present and scrubbed for the entire delivery. Baby Date of : 08/08/21 Time of : 03:03 Weeks of gestation at delivery: 37 Infant gender: Female Weight (pounds): 7 Weight (ounces): 13 presentation: vertex position: Right Occiput Anterior Placenta delivery description: Spontaneous and Normal Configuration Cord Vessel Description: 3 Vessels score one minute: 7 score five minutes: 9
[2021-08-08 03:45] LABS: Glucose Point of Care 121 mg/dl (65-105)
--- NOTE | 2021-08-08 03:47 | PM.OBDSVD ---
DS: Admitting Diagnosis Discharge Date 08/10/21 Admitting Diagnosis IUP at 37 4/7 weeks Poorly controlled A2DM DS: Discharge Diagnosis Discharge Diagnosis (1) (normal spontaneous vaginal delivery): Code(s): O80 - Encounter for full-term uncomplicated delivery Status: Acute (2) Gestational diabetes mellitus (GDM): Code(s): O24.419 - Gestational diabetes mellitus in , unspecified control Status: Acute (3) Anxiety: Code(s): F41.9 - Anxiety disorder, unspecified Status: Acute (4) Hypothyroidism: Code(s): E03.9 - Hypothyroidism, unspecified Status: Acute (5) Shoulder dystocia, delivered: Code(s): O66.0 - Obstructed labor due to shoulder dystocia Status: Acute OB - DS: Summary OB Procedures : None OB Procedures Intrapartum: Spontaneous Vag Delivery OB Procedures: : None DS: Data Data Completed and Pending Labs on day of discharge: Labs from last 24 hours 08/08/21 08/08/21 08/07/21 02:54 00:27 21:00 POC Capillary Glucose 121 H 107 H 91 RPR 08/07/21 08/07/21 08/07/21 16:51 15:45 10:53 POC Capillary Glucose 87 78 93 RPR 08/07/21 08/06/21 07:05 17:35 POC Capillary Glucose 98 RPR Non-reactive Discharge Plan Discharge Attending physician on discharge: Cortes Sun Discharging Clinician: Cortes Sun Patient Disposition: Home, Self-Care Activity: pelvic rest Diet: regular Discharge Instructions: Call or return if temperature above 100.4? F, increased abdominal pain, increased vaginal bleeding or any new problems. Stand Alone Forms: General Discharge Information Follow-up/Referrals: Cortes Sun MD [Physician] - 6 Weeks Discharge Medications: New ibuprofen 600 mg tablet 600 mg PO Q6H PRN (Reason: cramps) Qty: 30 RF: 0 ferrous sulfate 325 mg (65 mg iron) tablet 325 mg PO DAILY Qty: 30 RF: 0 Continued escitalopram oxalate [Lexapro] 5 mg tablet 5 mg PO DAILY RF: 0 famotidine [Pepcid] 20 mg Tablet 20 mg PO BID RF: 0 docusate sodium [Colace] 100 mg Capsule 100 mg PO DAILY RF: 0 PNV cmb#95-ferrous fumarate-FA [] 28 mg iron- 800 mcg Tablet 1 tablet PO DAILY RF: 0 levothyroxine 100 mcg tablet 100 mcg PO QAM Qty: 30 RF: 11 Discontinued glyburide 5 mg Tablet 10 mg PO HS RF: 0 Date of admission: 08/06/21 16:51 Primary Care Provider: Neno Carpio Admitting Provider: Cortes Sun Attending physician on admission: Cortes Sun Condition: Stable
[2021-08-08] MEDS: COSYNTROPIN 0.25 MG/ML VIAL 1 MG IV PUSH (05:00)
[2021-08-08] MEDS: LEVOTHYROXINE SODIUM 100 MCG TABLET PO (07:45)
[2021-08-08] MEDS: MULTIVIT/MIN/PREN/FOL AC/IRON TABLET 1 TAB PO (07:45)
[2021-08-08] MEDS: ACETAMINOPHEN 325 MG TABLET 650 MG PO ×3 (07:45→22:02)
[2021-08-08] MEDS: DOCUSATE SODIUM 100 MG CAPSULE PO ×2 (07:46→15:31)
[2021-08-08] MEDS: ESCITALOPRAM OXALATE 5 MG TABLET PO (07:46)
[2021-08-08] MEDS: IBUPROFEN 600 MG TABLET PO ×2 (12:06→18:46)
[2021-08-09 05:18] LABS: Hematocrit 33.4 % (37.0-47.0); Hemoglobin 10.9 g/dL (12.0-15.0)
--- NOTE | 2021-08-09 07:08 | PM.OBPNVD ---
OB - PN: Subj Subjective Date/time seen: 08/09/21 07:08 Narrative: Pain OK. OB - PN: Obj Data Labs CBC & Chem 7: 08/09/21 05:12 Labs: Laboratory Results - last 24 hr 08/09/21 05:12 Hgb 10.9 L Hct 33.4 L OB - PN A/P Plan Comments: A: PPD#1, doing well. P: Routine care. Plan home tomorrow. Exam Psych: Other: AVSS ABD soft, nontender, fundus firm EXT nontender
[2021-08-09 08:00] VITALS: BP 124/70; PULSE 78; RESP 16; TEMP 36.8; O2SAT 98
--- NOTE | 2021-08-09 08:40 | WPDANLDPN2 ---
Anes-Prog Note L&D Date/Time: 08/09/21 08:40 Comfortable throughout: labor and delivery Neuraxial method: epidural Epidural/Spinal procedure site: clean & non-tender Neuro status: Neuro function grossly intact. Cardiovascular status: normal Respiratory status: normal Airway patency: baseline Mental status: baseline Post-Op hydration status: normal Vital Signs: Last Vital Signs Temp 36.2 C L 08/08/21 22:47 Pulse 71 08/08/21 22:47 Resp 16 08/08/21 22:47 BP 115/74 08/08/21 22:47 Pulse Ox 99 08/08/21 22:47 Pain score (VAS): 0 Post-procedural complaints: none Patient feedback: Patient satisfied with anesthetic care.
[2021-08-09] MEDS: DOCUSATE SODIUM 100 MG CAPSULE PO ×2 (09:45→21:50)
[2021-08-09] MEDS: ESCITALOPRAM OXALATE 5 MG TABLET PO (09:45)
[2021-08-09] MEDS: MULTIVIT/MIN/PREN/FOL AC/IRON TABLET 1 TAB PO (09:45)
[2021-08-09] MEDS: IBUPROFEN 600 MG TABLET PO (09:46)
[2021-08-09] MEDS: LEVOTHYROXINE SODIUM 100 MCG TABLET PO (09:47)
[2021-08-09 18:55] VITALS: BP 141/82; PULSE 72; RESP 16; TEMP 36.9; O2SAT 99
[2021-08-10 08:30] VITALS: BP 133/89; PULSE 72; RESP 16; TEMP 37.4; O2SAT 99
--- NOTE | 2021-08-10 08:54 | PM.OBPNVD ---
OB - PN: Subj Subjective Date/time seen: 08/10/21 08:54 Narrative: Pain OK. Would like to go home. OB - PN: Obj Data Labs CBC & Chem 7: 08/09/21 05:12 OB - PN A/P Plan Comments: A: PPD#2, doing well. P: Home to f/u 6 weeks. Exam Psych: Other: AVSS ABD soft, nontender, fundus firm EXT nontender
[2021-08-10] MEDS: DOCUSATE SODIUM 100 MG CAPSULE PO (09:54)
[2021-08-10] MEDS: MULTIVIT/MIN/PREN/FOL AC/IRON TABLET 1 TAB PO (09:55)
[2021-08-10] MEDS: ESCITALOPRAM OXALATE 5 MG TABLET PO (09:55)
[2021-08-10] MEDS: LEVOTHYROXINE SODIUM 100 MCG TABLET PO (09:55)
--- NOTE | 2021-08-10 11:39 | PCCCNOTE ---
Care Coordination met with pt. and her mother this morning to discuss discharge planning. Pt. states her D/C plan will be to return home with baby and her . Pt. is independent with ADLs and ambulation. She confirms that she has everything needed to safely bring baby home including a car seat and place for baby to sleep. Pt. denies any prior [facility] history. Pt. and baby tested positive for Marijuana at time of admission. Pt. states she used Marijuana throughout her to assist with symptoms and anxiety. Now that baby has been delivered, pt. will transition back to her anxiety medication. Pt. has been informed that her drug use will be reported to [facility], she has no questions or concerns at this time. Pt.'s intake ID number is [id number]. Will follow.
--- NOTE | 2021-08-10 12:35 | PC.NURSE ---
[id number] Breast pump provided prior to shift due to mothers request. Instructions given on cleaning, care, usage, there should be no pain, pumping schedule for milk production, collection, and storage of human milk. Mother is encouraged to record pumping schedule on the feeding sheet. Patient was assessed for correct placement, flange size, to pump for comfort and nipple stretching/stimulation for adequate milk production. Mother voiced understanding of the education shared. Reported to the primary RN.
--- NOTE | 2021-08-10 12:36 | PC.NURSE ---
1120 - Discussed milk production and supply with maternal mother present. Pt has a history of hypothyroidism and a dog bite to her right nipple as a child. Questions and concerns discussed as it pertains to , pumping, preventing engorgement, infection and milk supply. Encouraged mother to not see a problem unless a problem presents later once milk is in. Mother denies any pain with pumping and is not seeing any milk supply at this time. Encouragement given. Mother voiced understanding of stimulating hormones to make milk and the 3-5 days for the transition of milk to take place.
[2021-08-12 08:48] VITALS: BP 139/76; PULSE 69; RESP 20; TEMP 37.2; O2SAT 98
== END 2021-08-10 17:40 | disposition home or self-care (01) | DRG 807 ==
LOC: ANHLDR 08-08 03:49 → ANHOB2 08-08 05:37
PROVIDERS: Admitting Provider Obstetrics & Gynecology; PCP Family Medicine; Visit Provider Obstetrics & Gynecology
DX: O24.429 Gestational diabetes mellitus in childbirth, unspecified control (principal); Z37.0 Single live birth; Z3A.37 37 weeks gestation of pregnancy; O70.1 Second degree perineal laceration during delivery; O99.284 Endocrine, nutritional and metabolic diseases complicating childbirth; E03.9 Hypothyroidism, unspecified; O99.344 Other mental disorders complicating childbirth; F41.9 Anxiety disorder, unspecified; F32.A Depression, unspecified; O66.0 Obstructed labor due to shoulder dystocia; O99.52 Diseases of the respiratory system complicating childbirth; J45.909 Unspecified asthma, uncomplicated
CPT/HCPCS: 36415; 59025; 80307; 82948; 85014; 85018; 85025; 86592; 86850; 86900; 86901; 88307; A9270; J0290; J0834; J2405; J2590; J2795; J3010; J7120

== ENCOUNTER 2022-08-07 09:43 | Observation (INO) | payer BC, SELFPAY ==
--- NOTE | ~2022-08-07 | US_ITS ---
EXAMINATION: US pelvic complete w TV DATE: 08/07/2022 12:47 INDICATION: Right lower quadrant pain TECHNIQUE: Multiple transabdominal and endovaginal sonographic images of the pelvis were obtained. COMPARISON: CT from today FINDINGS: The uterus measures 8.1 x 3.6 x 3.4 cm. The endometrial complex measures 9 mm. The right ov fiorella measures 8.3 x 5.3 x 4.2 cm. There is a 4.7 x 4.7 x 4.8 cm dermoid of the right adnexa. The left ovary measures 3.9 x 2.6 x 2.8 cm. There is normal vascular flow in the ovaries. There is no free flu id in the pelvis. IMPRESSION: 1. Right adnexal dermoid. Recommend follow-up in 12 months if not surgically resected. 2. Intact vascular flow to the right ovary without definite evidence of torsion. Recommend PRIMER POWDER BLENDER WET evalua tion as flow can sometimes remain intact even in the presence of torsion. Reviewed, dictated and finalized at location A. IMPRESSION: 1. Right adnexal dermoid. Recommend follow-up in 12 months if not surgically re sected. 2. Intact vascular flow to the right ovary without definite evidence of torsion . Recommend PRIMER POWDER BLENDER WET evaluation as flow can sometimes remain intact even in the pres ence of torsion.
--- NOTE | ~2022-08-07 | CT_ITS ---
EXAMINATION: CT abdomen pelvis w con INDICATION: Right quadrant pain TECHNIQUE: Computed tomographic images of the abdomen and pelvis were obtained after the administrati on of 100 cc of Omnipaque 350 intravenous contrast. The dose-length product (DLP) was 1071.85 mGy-cm. Automated exposure control and iterative reconstruction technique were employed. COMPARISON: None available FINDINGS: Minimal dependent atelectasis is present in the lung bases. The heart size is normal. A 3 m m nodule of the right middle lobe likely represents old granulomatous disease. The liver, spleen, arguelles creas, gallbladder, and adrenal glands are normal. No pathologically enlarged abdominal or pelvic lym ph nodes are identified. No free intraperitoneal gas or evidence of bowel obstruction. The appendix i s normal. There is a 6.2 x 5.7 cm mixed attenuation mass of the right adnexa containing fat, soft tis santana, calcification. There is a small volume of pelvic ascites. There is moderate lumbar spondylosis a t L5-S1. IMPRESSION: 1. Right adnexal dermoid measuring up to 6.2 cm. Given history of right lower quadrant pain, recommen d pelvic ultrasound to evaluate for possible ovarian torsion. Reviewed, dictated and finalized at location A. IMPRESSION: 1. Right adnexal dermoid measuring up to 6.2 cm. Given history of right lower q uadrant pain, recommend pelvic ultrasound to evaluate for possible ovarian tors ion.
[2022-08-07 09:51] VITALS: BP 148/88; PULSE 65; RESP 16; TEMP 36.4; O2SAT 100
--- NOTE | 2022-08-07 09:58 | ED.ABDPAIN ---
HPI - Abdominal Pain General Chief Complaint: Abdominal Pain <YESY Zimmerman Last Filed: 08/07/22 14:44> Stated Complaint: abd pain <YESY Zimmerman Last Filed: 08/07/22 14:44> Time Seen by Provider: 08/07/22 09:51 <YESY Zimmerman Last Filed: 08/07/22 14:44> Source: patient <YESY Zimmerman Last Filed: 08/07/22 14:44> Mode of arrival: ambulatory <YESY Zimmerman Last Filed: 08/07/22 14:44> Limitations: no limitations <YESY Zimmerman Last Filed: 08/07/22 14:44> History of Present Illness HPI narrative: Patient is a 32 y/o female who presents to the ED with c/o right lower quadrant abdominal pain. Patient reports she woke up around 4 AM this morning with pain in her right lower abdomen. She has a history of IBS and states she did not think much of it at first, but the pain has progressively worsened since then. Reports pain is worse with any type of movement, somewhat alleviated by sitting still. She did not take anything for the pain. She developed nausea and vomiting, unable to keep anything down, which prompted her presentation. She is concerned it may be her appendix. Denies history of ovarian cyst or kidney stones. Denies fever, diarrhea, constipation, last bowel movement this morning and normal. Denied rectal bleeding or melena. Denies urinary symptoms. Denies back pain. <YESY Zimmerman Last Filed: 08/07/22 14:44> Related Data Home Medications: Home Medications Medication Instructions Recorded Confirmed escitalopram oxalate 5 mg tablet 5 mg PO DAILY 02/05/21 04/30/22 (Lexapro) <YESY Zimmerman Last Filed: 08/07/22 14:44> Allergies/Adverse Reactions: Allergies Allergy/AdvReac Type Severity Reaction Status Date / Time No Known Allergies Allergy Verified 08/07/22 10:09 <YESY Zimmerman Last Filed: 08/07/22 14:44> Review of Systems Review of Systems: CONSTITUTIONAL: Denies fever, chills, or sweats. CARDIOVASCULAR: Denies chest pain. RESPIRATORY: Denies dyspnea. GASTROINTESTINAL: See HPI. GENITOURINARY: Denies dysuria or hematuria. SKIN: Denies rash or itching. MUSCULOSKELETAL: Denies back pain, joint pain, or myalgia. NEUROLOGIC: Denies headache, numbness, or weakness. <Georgia Youngblood PA-C - Last Filed: 08/07/22 14:44> All systems reviewed & are unremarkable except as noted in HPI and below <Georgia Youngblood PA-C - Last Filed: 08/07/22 14:44> [facility] Past Medical History Medical History: Medical History (Updated 08/07/22 @ 14:39 by Georgia Youngblood PA-C) Acute bronchitis Anxiety Asthma Asthma BMI 37.0-37.9, adult BMI 39.0-39.9,adult Gestational diabetes mellitus (GDM) Gestational diabetes mellitus (GDM) affecting Headache Heartburn during History of smoking Hypothyroidism IBS (irritable bowel syndrome) Laceration of left forearm Laceration of right breast Missed Nasal congestion (normal spontaneous vaginal delivery) Post-op pain and not yet delivered Retained products of conception after miscarriage Screening for diabetes mellitus Shoulder dystocia, delivered Wellness examination <Georgia Youngblood PA-C - Last Filed: 08/07/22 14:44> Surgical History Surgical History: Surgical History History of placement of ear tubes History of tonsillectomy <Georgia Youngblood PA-C - Last Filed: 08/07/22 14:44> Family History Family History: Family History Father Hypertension Mother Autoimmune disorder Grandparent Acute myocardial infarction Family history of lymphoma Family history of throat cancer Family history of chronic obstructive pulmonary disease Sibling Autoimmune disorder <Georgia Youngblood PA-C -
[2022-08-07] MEDS: ONDANSETRON INJ 4 MG/2 ML VIAL IV PUSH (10:12)
[2022-08-07] MEDS: SODIUM CHLORIDE 0.9% IV 1,000 ML 999 ML IV CONT (10:12)
[2022-08-07] MEDS: MORPHINE SULFATE (*CRX) 4 MG/ML INJ IV PUSH (10:12)
[2022-08-07 10:19] LABS: Appearance Urine Clear (Clear); Bacteria Urine Rare /hpf; Bilirubin Urine Negative (Negative); Blood Urine Negative (Negative); Color Urine Yellow (Yellow); Glucose Urine UA Negative (Negative); Ketones Urine Negative (Negative); Leukocyte Esterase Ur Negative LEU/UL (Negative); Need Manual Microscopic Reviewed; Nitrate Urine Negative (Negative); Non Pathogenic Casts 0-2; Protein Urine Trace mg/dL (Negative); RBC Urine 0-2 /hpf (0-2); Specific Grav Ur 1.025 (1.001-1.035); Squamous Epithelial Cell Urine Occasional /hpf (Few); Urobilinogen Urine 0.2 mg/dL (<2.0); WBC Urine 0-5 /hpf
[2022-08-07 10:27] LABS: Add Urine Microscopic? YES
[2022-08-07 10:33] LABS: Basophils Absolute Auto 0.1 K/mm3 (0.0-0.1); Basophils Percent Auto 0.4 % (0.2-1.2); Eosinophils Absolute Auto 0.1 K/mm3 (0-0.3); Eosinophils Percent Auto 0.8 % (0-4.4); Hematocrit 46.4 % (37.0-47.0); Hemoglobin 15.3 g/dL (12.0-15.0); Immature Granulocyte Absolute 0.07 K/mm3 (0.00-0.031); Immature Granulocyte Percent A 0.5 % (0-0.5); Lymphocytes Percent Auto 10.7 % (18.3-44.2); Mean Corpuscular Hemoglobin 30.8 pg (26-34); Mean Corpuscular Volume 93.5 fl (80-100); Mean Platelet Volume 12.5 fl (7.4-10.4); Monocytes Absolute Auto 0.8 K/mm3 (0.1-0.6); Monocytes Percent Auto 5.9 % (2.6-8.5); Neutrophils Absolute Auto 11.4 K/mm3 (1.3-6.7); Neutrophils Percent Auto 81.7 % (45.5-73.1); Platelet Count Result 255 k/mm3 (150-375); Red Blood Count 4.96 M/mm3 (4.2-5.4); Red Cell Distribution Width 13.6 % (11.5-14.5)
[2022-08-07 10:50] LABS: Alanine Aminotransferase 25 U/L (6-35); Alkaline Phosphatase 71 U/L (38-126); Anion Gap 8 mmol/L (8-16); Aspartate Amino Transferase 22 U/L (14-36); Bilirubin,Total 0.7 mg/dL (0.2-1.3); Blood Urea Nitrogen 17 mg/dL (7-17); Calcium 9.3 mg/dL (8.4-10.2); Carbon Dioxide 25 mmol/L (22-30); Chloride 105 mmol/L (98-107); Estimated CRCL calculation 169 ml/min; Estimated Glomerular Filt Rate > 60; Glucose 130 mg/dL (65-110); Lipase 52 U/L (23-300); Potassium 4.3 mmol/L (3.4-5.0); Sodium 138 mmol/L (137-145)
[2022-08-07] MEDS: HYDROmorphone HCL INJ (*CRX) 1 MG/ML SYR IV PUSH ×2 (11:05→13:03)
[2022-08-07] MEDS: METOCLOPRAMIDE HCL INJ 10 MG/2 ML VIAL IV PUSH (11:05)
--- NOTE | 2022-08-07 13:25 | PC.NURSE ---
call out to dr Constanza Toscano but unsuccessful no return phone call 11:54 12:11 13:[address] Constanza Toscano tried his cell phone @ [phone] rang until disconnected Tried contacting Dr Sun @ [phone]
[2022-08-07 14:29] VITALS: BP 130/60; PULSE 69; RESP 18; O2SAT 100
--- NOTE | 2022-08-07 15:02 | PC.NURSE ---
This patient, Yesi Turcios, was received from ER on 08/07/22 at 1502. Patient/family oriented to unit policies and routines. RN received report from JOHN Caceres in the ER @ [phone].
[2022-08-07] MEDS: DEXTROSE 5%/LACTATED RINGERS 1,000 ML 125 ML IV CONT ×2 (15:33→23:48)
[2022-08-07] MEDS: HYDROcodone/acetaminophen (*CRX) 5-325 MG TABLET 1 TAB PO (15:38)
[2022-08-07 15:40] VITALS: BP 138/80; PULSE 60; RESP 16; TEMP 36.7; O2SAT 100
[2022-08-07] MEDS: KETOROLAC 30 MG/ML VIAL (*BKC) IV PUSH (18:30)
[2022-08-07 18:35] VITALS: BP 143/87; PULSE 83; RESP 18; TEMP 36.8; O2SAT 97
[2022-08-07] MEDS: HYDROcodone/acetaminophen (*CRX) 10-325 MG TABLET 1 TAB PO (20:57)
[2022-08-07 23:50] VITALS: BP 117/66; PULSE 66; RESP 16; TEMP 36.8; O2SAT 99
[2022-08-08] MEDS: KETOROLAC 30 MG/ML VIAL (*BKC) IV PUSH ×2 (02:52→09:58)
[2022-08-08] MEDS: HYDROcodone/acetaminophen (*CRX) 10-325 MG TABLET 1 TAB PO (03:30)
[2022-08-08 03:32] VITALS: BP 137/101; PULSE 67; RESP 16; TEMP 36.5; O2SAT 99
[2022-08-08 04:15] LABS: Basophils Absolute Auto 0.1 K/mm3 (0.0-0.1); Basophils Percent Auto 0.4 % (0.2-1.2); Eosinophils Absolute Auto 0.2 K/mm3 (0-0.3); Eosinophils Percent Auto 1.4 % (0-4.4); Hematocrit 40.6 % (37.0-47.0); Hemoglobin 13.5 g/dL (12.0-15.0); Immature Granulocyte Absolute 0.07 K/mm3 (0.00-0.031); Immature Granulocyte Percent A 0.5 % (0-0.5); Lymphocytes Absolute Auto 3.06 K/mm3 (0.9-3.2); Mean Corpuscular HGB Conc 33.3 g/dl (32-36); Mean Corpuscular Volume 93.1 fl (80-100); Mean Platelet Volume 12.1 fl (7.4-10.4); Monocytes Absolute Auto 1.2 K/mm3 (0.1-0.6); Monocytes Percent Auto 7.5 % (2.6-8.5); Neutrophils Absolute Auto 10.8 K/mm3 (1.3-6.7); Neutrophils Percent Auto 70.2 % (45.5-73.1); Platelet Count Result 255 k/mm3 (150-375); Red Blood Count 4.36 M/mm3 (4.2-5.4); Red Cell Distribution Width 13.5 % (11.5-14.5); White Blood Count 15.3 K/mm3 (4.5-10.0)
[2022-08-08 06:20] VITALS: BP 126/67; PULSE 77
[2022-08-08] MEDS: LEVOTHYROXINE SODIUM 100 MCG TABLET PO (07:32)
[2022-08-08 07:33] VITALS: TEMP 37
--- NOTE | 2022-08-08 09:31 | PM.IMHP ---
H&P: HPI History of Present Illness Date/Time: 08/08/22 09:31 Chief Complaint: Pain. Narrative: 32 y/o who was awakened at 4 am yesterday with RLQ pain. Went to ED where CT imaging showed normal appendix, but a right ovarian dermoid cyst was seen. Ultrasound showed a 4.5 cm right ovarian dermoid, with normal flow to both ovaries and no free fluid. No fever, no new GI symptoms, no symptoms. Last menses was last month. She was admitted for observation and her pain is minimal now on oral [place]. She is hoping to go home today, as it is her daughter's first birthday. Review of Systems Review of Systems: All systems reviewed & are unremarkable except as noted in HPI and below PMFSH Past Medical History Medical History Acute bronchitis Anxiety Asthma Asthma BMI 37.0-37.9, adult BMI 39.0-39.9,adult Gestational diabetes mellitus (GDM) Gestational diabetes mellitus (GDM) affecting Headache Heartburn during History of smoking Hypothyroidism IBS (irritable bowel syndrome) Laceration of left forearm Laceration of right breast Missed Nasal congestion (normal spontaneous vaginal delivery) Post-op pain and not yet delivered Retained products of conception after miscarriage Screening for diabetes mellitus Shoulder dystocia, delivered Wellness examination Surgical History Surgical History History of placement of ear tubes History of tonsillectomy Family History Family History Father Hypertension Mother Autoimmune disorder Grandparent Acute myocardial infarction Family history of lymphoma Family history of throat cancer Family history of chronic obstructive pulmonary disease Sibling Autoimmune disorder Social History Social History Smoking packs per day: 1 Smoking cigarettes per day: 20.0 Years smoked: 10 Smoking pack-years: 10.00 Smoking status: Former smoker Tobacco type: cigarettes Second hand tobacco smoke exposure: No Smoking end date: 02/17/20 Additional smoking assessment comments: SMOKED FOR 8 YEARS AND QUIT ABOUT A YEAR AGO started again about 6 months Alcohol intake: current Drinks per week: 4 Alcohol use details: social Substance use: current Substance use type: marijuana Other substance usage details: ONCE A/WEEK WHEN NOT Lack of Transportation: No Lack of Food: Never True Current Housing: I Have Housing Concerned About Future Housing: No Difficulty Paying Gas/Electric Bills: No Difficulty Paying for Meds: No Currently Unemployed: YES Education: Bachelor's Degree Difficulty w/ Childcare or Family Care: No Living arrangements: with family Additional living arrangements comments: SPOUSE Gender identity (if verbalized by the patient): Female Spiritual care concerns: No Meds Home Medications and Allergies Home Medications Medication Instructions Recorded Confirmed Type escitalopram oxalate 5 mg tablet 10 mg PO DAILY 02/05/21 08/07/22 History (Lexapro) levothyroxine 100 mcg tablet 100 mcg PO QAM #90 tabs 06/08/22 08/07/22 Rx albuterol sulfate 90 mcg/actuation 1 - 2 inh inhalation Q4H PRN 06/29/22 08/07/22 Rx aerosol inhaler shortness of breath , wheezing, cough #8.5 grams hydrocodone 5 mg-acetaminophen 325 1 - 2 tablet PO Q4H PRN pain #30 08/08/22 Rx mg tablet tabs Allergies Allergy/AdvReac Type Severity Reaction Status Date / Time No Known Allergies Allergy Verified 08/07/22 10:09 Vital Signs Vital Signs - 24 hr 08/07/22 09:51 08/07/22 14:29 08/07/22 15:40 Temperature 36.4 C 36.7 C Pulse Rate 65 69 60 Respiratory Rate 16 18 16 Blood Pressure 148/88 H 130/60 138/80 Pulse Oximetry 100 100 100 Oxygen Delivery Room Air
--- NOTE | 2022-08-08 09:31 | PM.DS ---
DS: Admitting Diagnosis Discharge Date 08/08/22 Admitting Diagnosis Abdominal pain Right ovarian dermoid cyst DS: Discharge Diagnosis Discharge Diagnosis (1) Right lower quadrant abdominal pain: Code(s): R10.31 - Right lower quadrant pain Status: Acute (2) Dermoid cyst of right ovary: Code(s): D27.0 - Benign neoplasm of right ovary Status: Acute DS: Summary Hospital Course Hospital Course: Observed overnight in hospital for pain and right ovarian dermoid cyst. Pain much improved and able to go home on oral pain meds. Time Spent with Patient Time attestation: Total time spent providing and/or coordinating discharge services: DS: Data Data Completed and Pending Labs on day of discharge: Labs from last 24 hours 08/08/22 08/07/22 08/07/22 03:36 12:46 10:10 WBC 15.3 H RBC 4.36 Hgb 13.5 Hct 40.6 MCV 93.1 MCH 31.0 MCHC 33.3 RDW 13.5 Plt Count 255 MPV 12.1 H Immature Gran % (Auto) 0.5 Neut % (Auto) 70.2 Lymph % (Auto) 20.0 [place] % (Auto) 7.5 Eos % (Auto) 1.4 Baso % (Auto) 0.4 Lymph # (Auto) 3.06 [place] # (Auto) 1.2 H Eos # (Auto) 0.2 Baso # (Auto) 0.1 Abs Immat Gran (auto) 0.07 H Absolute Neuts (auto) 10.8 H Absolute Nucleated RBC 0.0 Nucleated RBC % 0.0 Sodium 138 Potassium 4.3 Chloride 105 Carbon Dioxide 25 Anion Gap 8 BUN 17 Creatinine 0.50 L Estim Creat Clear Calc 169 Estimated GFR > 60 Glucose 130 H Calcium 9.3 Total Bilirubin 0.7 AST 22 ALT 25 Alkaline Phosphatase 71 Total Protein 8.0 Albumin 5.0 Lipase 52 Urine Color Urine Appearance Urine pH Ur Specific Lerna Urine Protein Urine Glucose (UA) Urine Ketones Ur Blood (Man) Urine Nitrate Urine Bilirubin Urine Urobilinogen Add Ur Microanalysis Leukocyte Esterase Rfl Urine RBC Urine WBC Ur Squamous Epith Cells Urine Bacteria Urine Casts Blood Type A Positive Antibody Screen Negative 08/07/22 08/07/22 10:10 10:00 WBC 14.0 H RBC 4.96 Hgb 15.3 H D Hct 46.4 MCV 93.5 MCH 30.8 MCHC 33.0 RDW 13.6 Plt Count 255 MPV 12.5 H Immature Gran % (Auto) 0.5 Neut % (Auto) 81.7 H Lymph % (Auto) 10.7 L [place] % (Auto) 5.9 Eos % (Auto) 0.8 Baso % (Auto) 0.4 Lymph # (Auto) 1.50 [place] # (Auto) 0.8 H Eos # (Auto) 0.1 Baso # (Auto) 0.1 Abs Immat Gran (auto) 0.07 H Absolute Neuts (auto) 11.4 H Absolute Nucleated RBC 0.0 Nucleated RBC % 0.0 Sodium Potassium Chloride Carbon Dioxide Anion Gap BUN Creatinine Estim Creat Clear Calc Estimated GFR Glucose Calcium Total Bilirubin AST ALT Alkaline Phosphatase Total Protein Albumin Lipase Urine Color Yellow Urine Appearance Clear Urine pH 5.0 Ur Specific Lerna 1.025 Urine Protein Trace Urine Glucose (UA) Negative Urine Ketones Negative Ur Blood (Man) Negative Urine Nitrate Negative Urine Bilirubin Negative Urine Urobilinogen 0.2 Add Ur Microanalysis Reviewed Leukocyte Esterase Rfl Negative Urine RBC 0-2 Urine WBC 0-5 Ur Squamous Epith Cells Occasional Urine Bacteria Rare Urine Casts 0-2 Blood Type Antibody Screen Discharge Plan Discharge Attending physician on discharge: Cortes Sun Consulting providers: Georgia Youngblood ; López Shultz Discharging Clinician: Cortes Sun Patient Disposition: Home, Self-Care Activity: unlimited Diet: regular Discharge Instructions: Call or return if temperature above 100.4? F, increased abdominal pain or any new problems. Stand Alone Forms: General Discharge Information Follow-up/Referrals: Cortes Sun MD [Physician] - 2 Weeks Discharge Medications: New hydrocodone-acetaminophen 5-325 mg tablet 1 - 2 tablet PO Q4H PRN (Reason: pain) Qty: 30 0RF Continued
== END 2022-08-08 10:25 | disposition home or self-care (01) ==
LOC: ANHED 14:39 → ANHOB2 14:47
PROVIDERS: Emergency Medicine; Admitting Provider Obstetrics & Gynecology; Emergency Provider Physician Assistant; PCP Family Medicine; Visit Provider Obstetrics & Gynecology
DX: R10.31 Right lower quadrant pain (principal); D27.0 Benign neoplasm of right ovary; Z32.02 Encounter for pregnancy test, result negative; K58.9 Irritable bowel syndrome, unspecified; J45.909 Unspecified asthma, uncomplicated; F41.9 Anxiety disorder, unspecified; E03.9 Hypothyroidism, unspecified; D72.829 Elevated white blood cell count, unspecified; D64.9 Anemia, unspecified; Z87.891 Personal history of nicotine dependence; Z79.899 Other long term (current) drug therapy
CPT/HCPCS: 36415; 74177; 76830; 76856; 80053; 81001; 81025; 83690; 85025; 86850; 86900; 86901; 96361; 96374; 96375; 96376; 99285; A9270; G0378; J1170; J1885; J2270; J2405; J2765; J7030; J7121; Q9967

== ENCOUNTER 2022-08-18 01:50 | Day surgery (SDC) | payer BC, SELFPAY ==
[2022-08-10 12:29] VITALS: BMI 37.7
--- NOTE | 2022-08-10 12:34 | PC.NURSE ---
Report to the Outpatient Waiting Room, entrance under the green pavilion located off [facility], at time 1300 on date 08/18/22. Planned Procedure Time: 1500. Time changes happen often and if your time is changed the preop area will call you the afternoon before. - You and your visitor will be asked to self-screen and do not enter if you have any COVID symptoms. - A mask is optional within the hospital at this time. Patients may have clear liquids (water, carbonated beverages, clear teas, apple juice) until 3 hours prior to surgery with a maximum of 20 ounces. - No food from midnight until time of surgery Take the following medications with a SIP of water the morning of surgery: LEVOTHYROXINE, LEXAPRO, INHALER AND PAIN PILL IF NEEDED DO NOT STOP ANY OF YOUR OTHER PRESCRIPTION MEDICATIONS PRIOR TO SURGERY EXCEPT THE FOLLOWING Medications to discontinue per physician: N/A Date to take last dose: N/A Please no make-up, nail setswana, hairspray, perfume, deodorant, or body powder the day of surgery. No jewelry (including any body piercings) or valuables the day of surgery, leave them at home. Please take a shower or bath the night before, or the morning of, surgery with an antibacterial soap. Wear comfortable, loose fitting clothing. - Jewelry must be removed prior to entering the operating room. Rings and piercings that are not removed may be cut off. - The hospital will not accept responsibility for valuables. - Please leave all valuables, including medications, at home the day of surgery. If you are going home after surgery, a licensed transit mixer driver must drive you home. - NO public transportation without another adult if you receive anesthesia. - We recommend that an adult stay with you for 24 hours following discharge. - We also recommend that you do not drive, make important decision, drink alcoholic beverages, or take any drugs that were not prescribed by your health care provider for at least 24 hours after your discharge time. Follow any additional instructions given to you from your surgeon. If you or anyone in your household have experienced Covid symptoms in the past week, please notify your surgeon or the nurse liaison at the phone number below for possible testing. Telephone instructions given to PT - AYESHA STRONG and asked if any additional questions and then verbalized understanding. Patient advised to call surgeon office or pre surgery nurse liaison [phone] if any additional questions.
--- NOTE | 2022-08-17 14:17 | WPDANESEPPF ---
Anes - Initial Pre Proc Eval Procedure: Operation Date: 08/18/22 15:00 Proposed Procedures p Diagnostic Laparoscopy with Right Ovarian Cystectomy - Cortes Sun MD Date/Time: 08/17/22 14:17 Surgeon: Cortes Sun MD Pre Op Diagnosis: Rt Ovarian Dermoid Cyst Patient Data Age: 32 Gender: F Height: 1.68 m Weight: 106 kg Allergies Allergy/AdvReac Type Severity Reaction Status Date / Time No Known Allergies Allergy Verified 08/10/22 12:29 Home Medications Medication Instructions Recorded Confirmed Type escitalopram oxalate 5 mg tablet 10 mg PO DAILY 02/05/21 08/18/22 History (Lexapro) levothyroxine 100 mcg tablet 100 mcg PO QAM #90 tabs 06/08/22 08/18/22 Rx albuterol sulfate 90 mcg/actuation 1 - 2 inh inhalation Q4H PRN 06/29/22 08/18/22 Rx aerosol inhaler shortness of breath , wheezing, cough #8.5 grams hydrocodone 5 mg-acetaminophen 325 1 - 2 tablet PO Q4H PRN pain #30 08/08/22 08/18/22 Rx mg tablet tabs Patient hx anesthesia problems: none Family hx anesthesia problems: none Results Review: All pre-operative results and documents have been reviewed as part of the pre-operative evaluation. FOR[facility]LY [facility], [facility] Past Medical History Medical History Acute bronchitis Anxiety Asthma Asthma BMI 37.0-37.9, adult BMI 39.0-39.9,adult Gestational diabetes mellitus (GDM) Gestational diabetes mellitus (GDM) affecting Headache Heartburn during History of smoking Hypothyroidism IBS (irritable bowel syndrome) Laceration of left forearm Laceration of right breast Missed Nasal congestion (normal spontaneous vaginal delivery) Post-op pain and not yet delivered Retained products of conception after miscarriage Screening for diabetes mellitus Shoulder dystocia, delivered Wellness examination Surgical History Surgical History History of placement of ear tubes History of tonsillectomy Family History Family History Father Hypertension Mother Autoimmune disorder Grandparent Acute myocardial infarction Family history of lymphoma Family history of throat cancer Family history of chronic obstructive pulmonary disease Sibling Autoimmune disorder Social History Social History Smoking packs per day: 1 Smoking cigarettes per day: 20.0 Years smoked: 10 Smoking pack-years: 10.00 Smoking status: Former smoker Tobacco type: cigarettes Second hand tobacco smoke exposure: No Smoking end date: 04/18/21 Additional smoking assessment comments: SMOKED FOR 8 YEARS AND QUIT ABOUT A YEAR AGO started again about 6 months Alcohol intake: current Drinks per week: 4 Alcohol use details: social Substance use: current Substance use type: marijuana Other substance usage details: ONCE A/WEEK WHEN NOT Lack of Transportation: No Lack of Food: Never True Current Housing: I Have Housing Concerned About Future Housing: No Difficulty Paying Gas/Electric Bills: No Difficulty Paying for Meds: No Currently Unemployed: YES Education: Bachelor's Degree Difficulty w/ Childcare or Family Care: No Living arrangements: with family Additional living arrangements comments: SPOUSE Gender identity (if verbalized by the patient): Female Spiritual care concerns: No Anes - Eval Final PreProcedure Day of Procedure 08/17/22 14:17 Patient weight: obese Heart: regular rate and rhythm Lungs: clear to auscultation Airway: Mallampati scale class II Neurological: alert and oriented Last oral intake: >/= 8 hours ASA classification: III Emergent: no Anesthetic plan: proceed Anesthesia type and monitoring: general ETT and standard monitoring Results Review: All pre-operative results and documents have b
[2022-08-18] VITALS (10 sets, daily range): BP systolic 108–150; BP diastolic 59–81; PULSE 65–94; RESP 14–20; TEMP 36.2–36.7; O2SAT 98–100
--- NOTE | 2022-08-18 12:02 | PM.IMHP ---
H&P: HPI History of Present Illness Date/Time: 08/18/22 12:02 Chief Complaint: Pain Narrative: 32 y/o who developed RLQ pain and was diagnosed with a right ovarian dermoid cyst. US showed good flow to the adnexa. Her pain has been managed with PO meds, but has still been present. She desires laparoscopic right ovarian cystectomy. Review of Systems Review of Systems: All systems reviewed & are unremarkable except as noted in HPI and below PMFSH Past Medical History Medical History Acute bronchitis Anxiety Asthma Asthma BMI 37.0-37.9, adult BMI 39.0-39.9,adult Gestational diabetes mellitus (GDM) Gestational diabetes mellitus (GDM) affecting Headache Heartburn during History of smoking Hypothyroidism IBS (irritable bowel syndrome) Laceration of left forearm Laceration of right breast Missed Nasal congestion (normal spontaneous vaginal delivery) Post-op pain and not yet delivered Retained products of conception after miscarriage Screening for diabetes mellitus Shoulder dystocia, delivered Wellness examination Surgical History Surgical History History of placement of ear tubes History of tonsillectomy Family History Family History Father Hypertension Mother Autoimmune disorder Grandparent Acute myocardial infarction Family history of lymphoma Family history of throat cancer Family history of chronic obstructive pulmonary disease Sibling Autoimmune disorder Social History Social History Smoking packs per day: 1 Smoking cigarettes per day: 20.0 Years smoked: 10 Smoking pack-years: 10.00 Smoking status: Former smoker Tobacco type: cigarettes Second hand tobacco smoke exposure: No Smoking end date: 04/18/21 Additional smoking assessment comments: SMOKED FOR 8 YEARS AND QUIT ABOUT A YEAR AGO started again about 6 months Alcohol intake: current Drinks per week: 4 Alcohol use details: social Substance use: current Substance use type: marijuana Other substance usage details: ONCE A/WEEK WHEN NOT Lack of Transportation: No Lack of Food: Never True Current Housing: I Have Housing Concerned About Future Housing: No Difficulty Paying Gas/Electric Bills: No Difficulty Paying for Meds: No Currently Unemployed: YES Education: Bachelor's Degree Difficulty w/ Childcare or Family Care: No Living arrangements: with family Additional living arrangements comments: SPOUSE Gender identity (if verbalized by the patient): Female Spiritual care concerns: No Meds Home Medications and Allergies Home Medications Medication Instructions Recorded Confirmed Type escitalopram oxalate 5 mg tablet 10 mg PO DAILY 02/05/21 08/10/22 History (Lexapro) levothyroxine 100 mcg tablet 100 mcg PO QAM #90 tabs 06/08/22 08/10/22 Rx albuterol sulfate 90 mcg/actuation 1 - 2 inh inhalation Q4H PRN 06/29/22 08/10/22 Rx aerosol inhaler shortness of breath , wheezing, cough #8.5 grams hydrocodone 5 mg-acetaminophen 325 1 - 2 tablet PO Q4H PRN pain #30 08/08/22 08/10/22 Rx mg tablet tabs Allergies Allergy/AdvReac Type Severity Reaction Status Date / Time No Known Allergies Allergy Verified 08/10/22 12:29 Vital Signs AVSS Exam Const: Orientation/consciousness: patient oriented x3 Other: Well-developed, well-nourished female in no acute distress. Neck: Thyroid: thyroid normal Lymphatic: no lymphadenopathy noted (in neck, axilla or inguinal nodes) Resp: Effort & Inspection: normal respiratory effort Auscultation: clear to auscultation bilaterally Cardio: Rate: regular rate Rhythm: regular rhythm Heart sounds: S1 normal heart sound present and S2 normal heart sound pre
[2022-08-18] MEDS: KETOROLAC 15 MG/ML VIAL (*BKC) IV PUSH (13:18)
[2022-08-18] MEDS: LACTATED RINGERS 1,000 ML 30 ML IV CONT ×2 (13:19→15:38)
[2022-08-18] MEDS: ACETAMINOPHEN 500 MG TABLET 1000 MG PO (13:20)
--- NOTE | 2022-08-18 14:21 | WPDHPUPDATE1 ---
History and Physical Update Update Date/Time: 08/18/22 14:21 History and Physical has been reviewed, including an updated exam of the patient. There are NO changes in the patient's condition. Risks, benefits, and alternatives have been discussed and questions answered. Patient agrees to proceed with procedure.
--- NOTE | 2022-08-18 15:25 | P.OP_ITS ---
Procedure Note - Detailed Date of Procedure 08/18/22 Pre-op Diagnosis Rt Ovarian Dermoid Cyst Post-op Diagnosis Same Procedure Performed Laparoscopic right ovarian cystectomy Surgeon Cortes Sun MD Anesthesia General Findings 4 cm right ovarian dermoid. Otherwise, unremarkable uterus, left ovary, bilateral Fallopian tubes, anterior and posterior cul de sac. The vermiform appendix and RUQ anatomy were unremarkable. Description of Procedure The patient was taken to the operating room where general endotracheal anesthesia was administered. She was prepared and draped in the usual sterile fashion in the dorsal lithotomy position. The bladder was drained with a red rubber catheter. A sterile speculum was inserted into the vagina and the anterior lip of the cervix was grasped with a single-toothed tenaculum. The acorn uterine manipulator was placed. The speculum was withdrawn. Gloves were changed and attention was turned to the abdomen. An infraumbilical skin incision was made with a scalpel. The abdomen was tented and a 5 millimeter bl adeless trocar trocar was advanced under direct laparoscopic visualization. Pneumoperitoneum was administered using carbon dioxide gas. A survey of the pelvis and abdomen yielded the findings noted above. A second 5 mm port was placed in the right lower quadrant, and a 10 mm port in the left lower quadrant, both using bladeless trocars under direct visualization. Needlepoint electrocautery was used to incise linearly above the cyst. The cyst was then shelled out using hydrodissection and blunt dissection. The cyst was placed in an endobag and sent to pathology. The pelvis was irrigated copiously with warmed normal saline. Hemostasis was excellent. The LLQ incisional fascia was reapproximated with a single suture of 0 Vicryl. The trocars were removed and the gas was allowed to escape. The skin incisions were reapproximated using 4-0 Vicryl in interrupted subcuticular fashion. Dermaflex was applied externally. The vaginal instrumentation was withdrawn and hemostasis was excellent here as well. Sponge, lap, needle and instrument counts were correct. The patient was awakened and taken to recovery in stable condition. I was present and scrubbed through the entire procedure. Implants None Estimated Blood Loss 5 Drains No Packing No Pathology Yes (Right ovarian dermoid cyst) Complications None Condition Stable Disposition PACU
[2022-08-18] MEDS: fentaNYL CITRATE INJ (*CRX) 100 MCG/2 ML VIAL 25 MCG IV PUSH ×4 (15:59→16:08)
[2022-08-18] MEDS: oxyCODONE HCL (*CRX) 5 MG TAB IR PO (16:45)
[2022-08-18] MEDS: ONDANSETRON HCL ODT 4 MG TABLET PO (17:40)
== END 2022-08-18 18:00 | disposition home or self-care (01) ==
PROVIDERS: PCP Family Medicine; Visit Provider Obstetrics & Gynecology
PROC: (CPT 49320; principal; 2022-08-18 15:00)
DX: D27.0 Benign neoplasm of right ovary (principal); R10.31 Right lower quadrant pain; G89.18 Other acute postprocedural pain; Z87.891 Personal history of nicotine dependence; F12.90 Cannabis use, unspecified, uncomplicated; Z68.37 Body mass index [BMI] 37.0-37.9, adult; F41.9 Anxiety disorder, unspecified; E03.9 Hypothyroidism, unspecified; J45.909 Unspecified asthma, uncomplicated; Z79.51 Long term (current) use of inhaled steroids
CPT/HCPCS: 58662; 36415; 86850; 86900; 86901; 88305; A9270; J1100; J1170; J1885; J2250; J2405; J2704; J2710; J3010; J7030; J7120

== ENCOUNTER 2023-11-18 08:25 | Outpatient (CLI) | payer BC, SELFPAY ==
--- NOTE | 2023-11-18 08:33 | ECHO_ITS ---
Patient Info Name: Yesi Turcios Age: 33 years : 1990 Gender: Female Ht: 66 in Wt: 240 lbs BSA: 2.30 m2 HR: 68 bpm BP: 138 / 89 mmHg Technical Quality: Good Exam Date: 11/18/2023 8:50 AM Exam Location: Echo Lab Patient Status: Outpatient Admit Date: 11/18/2023 Staff Ordering Physician: Jami Lorenzo NP Marketing Technology Coordinator: Mayur Ronquillo RDCS Attending Provider: Jami Lorenzo NP Exam Type: CA echo doppler color flow Study Info Indications R01.1 - Cardiac murmur, unspecified Complete two-dimensional, color flow and Doppler transthoracic echocardiogram is performed. Summary 1. Complete two-dimensional, color flow and Doppler transthoracic echocardiogram is performed. 2. Left ventricular chamber dimension is normal. 3. Left ventricular systolic function is normal, estimated at 60-65%. 4. The left ventricular diastolic function is normal. 5. E/e' 7 is not elevated. 6. There is trace mitral valve regurgitation. 7. There is trace tricuspid valve regurgitation. 8. No pulmonary hypertension, estimated pulmonary arterial systolic pressure is 36 mmHg. Left Ventricle E/e' 7 is not elevated. Left ventricular chamber dimension is normal. Left ventricular systolic function is normal, estimated at 60-65%. The left ventricular diastolic function is normal. Right Ventricle Right ventricular systolic function is normal and with normal TAPSE 2.3 cm. Right ventricular chamber dimension is normal. Left Atria Left atrial chamber dimension is normal. Right Atria Right atrial chamber dimension is normal. Aortic Valve The aortic valve is trileaflet. There is no aortic valve stenosis. There is no aortic valve regurgitation. Pulmonic Valve There is no pulmonic regurgitation. Mitral Valve There is no mitral valve stenosis. There is trace mitral valve regurgitation. Tricuspid Valve There is trace tricuspid valve regurgitation. No pulmonary hypertension, estimated pulmonary arterial systolic pressure is 36 mmHg. Pericardium/Pleural There is no pericardial effusion. Inferior Vena Cava Normal inferior vena cava with >50% collapse upon inspiration consistent with normal right atrial pressure, 5 mmHg. Aorta The aortic root size at the sinus of Valsalva is normal. Left Ventricular Outflow Tract Name Value Normal LVOT 2D LVOT Diameter 2.1 cm LVOT Doppler LVOT Peak Gradient 6 mmHg LVOT Mean Gradient 3 mmHg LVOT VTI 27 cm LVOT VTI/AV VTI Ratio 0.8 LVOT Stroke Volume 92 ml LVOT CO 6.6 l/min LVOT CI 2.9 l/min/m2 Pulmonic Valve Name Value Normal PV Doppler PV Peak Gradient 4 mmHg Mitral Valve Name Value Normal -------
--- NOTE | 2023-11-18 09:01 | ECG_ITS ---
Test Date: 2023-11-18 09:06:46 Measurements Intervals [place] Rate: 68 P: 4 [place]: 182 QRS: -5 QRSD: 102 T: -6 QT: 379 QTc: 404 Interpretive Statements SINUS RHYTHM WITHIN NORMAL LIMITS No previous ECG available for comparison Electronically Signed On 11-18-2023 11:34:40 CDT by Hammad Quiroga M.D.
== END 2023-11-18 08:26 | disposition home or self-care (01) ==
PROVIDERS: PCP Family Medicine; Visit Provider Nurse Practitioner Family
DX: R00.2 Palpitations (principal)
CPT/HCPCS: 93005; 93306

== ENCOUNTER 2023-12-21 15:29 | Outpatient (CLI) | payer BC, SELFPAY ==
--- NOTE | ~2023-12-21 | XR_ITS ---
EXAMINATION: XR chest 2V 12/21/2023 15:39 INDICATION: Cough PROCEDURE: 2 view chest COMPARISON: 11/27/2020 FINDINGS: The lungs are clear. The cardiomediastinal silhouette is within normal limits. There are no pleural effusions. There is no pneumothorax suspected. IMPRESSION: 1: NO ACUTE CARDIOPULMONARY DISEASE. Reviewed, dictated and finalized at location B.
== END 2023-12-21 15:30 | disposition home or self-care (01) ==
LOC: ANHIMG 15:31
PROVIDERS: PCP Family Medicine; Visit Provider Nurse Practitioner Family
DX: R05.9 Cough, unspecified (principal)
CPT/HCPCS: 71046

== ENCOUNTER 2025-02-20 13:17 | Outpatient (CLI) | payer BC, SELFPAY ==
--- OUTSIDE RECORDS SUMMARY | 2025-02-21 12:15 | XMS_ITS | Encounter Summary ---
Author Organization [facility] Address [address] [place] [address] Phone Care Team Providers Care Aids Nurse Name Role Phone Provider, Unknown Primary Care Provider Unavaila ble Encounter Details Date Type Department Care Team (Late st Contact Info) Description 02/08/2022 Lab Requisition [facility] [address] [place] [address] Donna Do, CHANNELING MACHINE OPERATOR, MACHINE HEEL SEAT LASTER [address] [place] [address] Encounter for pre-employment examination Social History Tobacco Use Types Packs/Day Years Used Date Smoking Tobacco: Never Assessed Comments Unknown Sex and Gender Information Value Date Recorded Sex Assigned at Not on file Legal Sex Female 3:36 PM CDT Gender Identity Not on file Sexual Orientation Not on file COVID-19 Exposure Response Date Recorded In the last 10 days, have yo u been in contact with someone who was confirmed or suspected to have Coronavirus/COVID-19? No / Unsure 02/08/2022 12:51 PM CDT documented as of this encounter Plan of Treatment Not on file documented as of this encounter Procedures Procedure Name Priority Date/Time Associated Diagnosis Comments QUANTIFERON-TB GOLD PLUS Routine 02/08/2022 1:00 PM CDT Encounter for pre-employment examination MMRV PANEL Routine 02/08/2022 1:00 PM CDT Encounter for pre-employment examination MUMPS IGG Routine 02/08/2022 1:00 PM CDT Encounter for pre-employment examination HERPES ZOSTER (VARICELLA) IGG Routine 02/08/2022 1:00 PM CDT Encounter for pre-employment examination RUBEOLA (MEASLES) IGG Routine 02/08/2022 1:00 PM CDT Encounter for pre-employment examination RUBELLA IMMUNITY IGG Routine 02/08/2022 1:00 PM CDT Encounter for pre-employment examination HEPATITIS B SURFACE ANTIBODY (HBSAB) Routine 02/08/2022 1:00 PM CDT Encounter for pre-employment examination documented in this encounter Results * HERPES ZOSTER (VARICELLA) IGG (02/08/2022 1:00 PM CDT) VARICELLA ZOSTER IGG 5.8 >=1.1 AI 02/09/2022 5:24 PM CDT [facility] Blood No Phlebotomy Charged / Unknown 02/08/2022 1:00 PM CDT 02/08/2022 3:00 PM CDT Narrative [facility] - 02/09/2022 5:24 PM CDT <= 0.8 Negative. No detectable VZV IgG antibody. 0.9 - 1.0 Equivocal >=1.1 Positive Antibody testing was performed by multiplex flow immunoassay on the Soweso platform. us Donna L Behrends CHANNELING MACHINE OPERATOR, MACHINE HEEL SEAT LASTER IMMUNOLOGY ORDERABL ES Final Result [facility] [address] [place] [address], [place] * RUBEOLA (MEASLES) IGG (02/08/2022 1:00 PM CDT) MEASLES AB IGG 4.0 >=1.1 AI 02/09/2022 5:24 PM CDT [facility] Blood No Phlebotomy Charged / Unknown 02/08/2022 1:00 PM CDT 02/08/2022 3:00 PM CDT Narrative [facility] - 02/09/2022 5:24 PM CDT <= 0.8 Negative. No detectable Measles IgG antibody. 0.9 - 1.0 Equivocal >=1.1 Positive Antibody testing was performed by multiplex flow immunoassay on the BioPlex platform. us Donna Do APRN, CNP IMMUNOLOGY ORDERABL ES Final Result Performing Organization Address City/[facility] Co de Phone Number [facility] [address] [place] [address], [place] * RUBELLA IMMUNITY IGG (02/08/2022 1:00 PM CDT) RUBELLA IMMUNITY Immune Immune, Invalid 02/09/2022 5:24 PM CDT [facility] Blood No Phlebotomy Charged / Unknown 02/08/2022 1:00 PM CDT 02/08/2022 3:00 PM CDT [facility] - 02/09/2022 5:24 PM CDT Antibody testing was performed by multiplex flow immunoassay on the BioPlex platform. us Donna Do APRN, CNP CHEMISTRY ORDERABLE S Final Result Performing Organization Address [facility] Co de Phone Number [facility] [address] [place] [address], [place] * MUMPS IGG (02/08/2022 1:00 PM CDT) Mumps Ab IgG 3.9 >=1.1 AI 02/09/2022 5:24 PM CDT [facility] Blood No Phlebotomy Charged / Unknown 02/08/2022 1:00 PM CDT 02/08/2022 3:00 PM CDT [facility] - 02/09/2022 5:24 PM CDT <= 0.8 Negative. No detectable Mumps IgG antibody. 0.9 - 1.0 Equivocal >=1.1 Positive Antibody testing was performed by multiplex flow immunoassay on the BioPlex platform. us Donna Do CHANNELING MACHINE OPERATOR, MACHINE HEEL SEAT LASTER IMMUNOLOGY ORDERABL ES Final Result [facility] [address] [place] [address], [place] * QUANTIFERON-TB GOLD PLUS (02/08/2022 1:00 PM CDT) NIL CONTROL 0.03 <8.01 IU/mL 02/10/2022 11:58 AM CDT [facility] TB ANTIGEN 1 0.00 <0.35 IU/mL 02/10/2022 11:58 AM CDT [facility] TB ANTIGEN 2 0.00 <0.35 IU/mL 02/10/2022 11:58 AM CDT [facility] MITOGEN CONTROL >10.00 >0.49 IU/mL 02/11/20 11:58 AM CDT [facility] INTEPRETATION TB NEGATIVE NEGATIVE, NEGATIVE (TB antigen response less than 25% of internal negative control value) 02/10/2022 11:58 AM CDT [facility] Comment:No immune response t o Mycobacterium tuberculosis antigens was noted. M. tuberculosis infection unlikely. Blood No Phlebotomy Charged / Unknown 02/08/2022 1:00 PM CDT 02/08/2022 3:00 PM CDT Narrative [facility] - 02/10/2022 11:58 AM CDT A POSITIVE QUANTIFERON-TB GOLD PLUS RESULT SHOULD NOT BE THE SOLE OR DEFINITIVE BASIS FOR DETERMINING INFECTION WITH M.TUBERCULOSIS. Diagnosing or excluding tuberculosis disease, and assessing the probability of LTBI, requires a combination of epidemiological, historical, medical and diagnostic findings (e.g., acid fast bacilli (AFB) smear and culture, chest xray) that should be taken into account when interpreting QFT-Plus results. Furthermore, the magnitude of the measured gamma interferon level cannot be correlated to stage or degree of infection, level of immune responsiveness, or likelihood for progression to active disease. The Nil control adjusts for background (e.g., elevated levels of circulating gamma interferon or presence of heterophile antibodies). The Mitogen control serves as an internal positive control and verifies each specimen tested can produce a gamma interferon response. Low mitogen may occur with insufficient lymphocytes, reduced lymphocyte activity due to improper specimen handling, filling/mixing of the mitogen tube, or inability of the patient's lymphocytes to generate gamma interferon. Infection with other Mycobacteria, including M. kansasii, M. szulgai, and M. marinum, may cause false positive results. A negative QuantiFERON-TB Gold Plus result does not preclude the possibility of M. tuberculosis infection or tuberculosis disease: false negative results can be due to incorrect blood sample collection/ improper handling of the specimen, stage of infection (e.g., specimen obtained prior to the development of cellular immune response), co-morbid conditions which affect immune function, or other individual immunological factors. The minimum number of lymphocytes required for a reliable test has not been established and may also be variable. Diagnostic testing for Mycobacterium tuberculosis using Interferon Gamma Release Assays should follow applicable published guidelines, including when testing in populations such as children, women, and HIV-infected or otherwise immunocompromised individuals. https://www.cdc.gov/tb/publications/guidelines/testing.htm us Donna Do CHANNELING MACHINE OPERATOR, MACHINE HEEL SEAT LASTER IMMUNOLOGY ORDERABL ES Final Result Performing Organization Address City/[facility]/ZIP Co de Phone Number [facility] [address] [place] [address], [place] * HEPATITIS B SURFACE ANTIBODY (HBSAB) (02/08/2022 1:00 PM CDT) HEPATITIS B SURFACE ANTIBODY 59.21 mIU/mL [facility] ARCH [id number] 02/08/2022 10:36 PM CDT [facility] Comment: Detected Range: >12.00 Individual is considered immune to HBV infection Blood No Phlebotomy Charged / Unknown 02/08/2022 1:00 PM CDT 02/08/2022 3:00 PM CDT us Donna L Behrends CHANNELING MACHINE OPERATOR, MACHINE HEEL SEAT LASTER CHEMISTRY ORDERABLE S Final Result Performing Organization Address City/[facility] Co de Phone Number [facility] [address] [place] [address], [place] documented in this encounter Visit Diagnoses Diagnosis Encounter for pre-employment examination Health examination of defined subpopulation documented in this encounter Care Teams Aids Nurse Relationship Specialty Start Date End Date Provider, Unknown UNKNOWN PCP - General 02/08/22 documented as of this encounter
--- OUTSIDE RECORDS SUMMARY | 2025-02-21 12:15 | XMS_ITS | Clinical Summary ---
Author Organization [facility] Address [address] [place] [address] Care Team Providers Care Animation Camera Operator Name Role Phone Neno Carpio MD Primary Care Provider [phone] Source Comments [facility],non-owned Affiliates and Associated Physician Practices is amultiple site organization consisting of ambulatory clinics and hospital sitesin [place], [place], [place] and [place]. This disclosure is being madepursuant to the Care Everywhere program and may not contain all information available regarding this patient. 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 Gender Identity Not on file Sexual Orientation Not on file Plan of Treatment Health Maintenance Due Date Last Done Comments HIV SCREENING 2006 HEPATITIS C SCREENING 01/24/2009 DTAP/TDAP/TD VACCINES (1 - Tdap) 2010 HEPATITIS B VACCINE (1 of 3 - 19+ 3-dose series) 2010 HPV VACCINE (1 - 3-dose SCDM series) 2018 DEPRESSION SCREENING 04/18/2024 COVID-19 VACCINE (3 - 2024-2 6 season) 2024 06/10/2020, 05/13/2020 INFLUENZA VACCINE (#1) 2024 , 12/28/2016, 01/09/2014 ZOSTER VACCINE (1 of 2) 2041 HIB VACCINE Aged Out No longer eligi ble based on patient's age to complete this topic MENINGOCOCCAL (Group B) VACCINE SHARED DECISION-MAKING Aged Out No longer eligible based on patient's age to complete this topic MENINGOCOCCAL GROUPS A/C/Y/W VACCINE Aged Out No longer eligible b ased on patient's age to complete this topic PNEUMOCOCCAL VACCINE Aged Out No long er eligible based on patient's age to complete this topic Care Teams Animation Camera Operator Relationship Specialty Start Date End Date Neno Carpio MD [address] [facility] [facility] [address] [address] PCP - General 08/16/21
--- OUTSIDE RECORDS SUMMARY | 2025-02-21 12:15 | XMS_ITS | Clinical Summary ---
Author Organization [facility] Address [address] [address] Phone Care Team Providers Care Field Research Assistant Name Role Phone Provider, Unknown Primary Care Provider Unavaila ble Allergies No known active allergies Medications escitalopram (LEXAPRO) 10 MG Tablet Take 10 mg by mouth daily. 11/27/2023 Active levothyroxine (SYNTHROID) 100 MCG Tablet Take 100 mcg by mouth every morning. 11/27/2023 Active buPROPion (WELLBUTRIN) 150 MG XL tablet Take 150 mg by mouth every morning. 11/22/2023 Active Fexofenadine-Ps eudoephedrine (ANAMARIA-D PO) Take by mouth. Active Multiple Vitamin (MULTIVITAMIN PO) Take by mouth. Active Fluticasone Propionate (FLONASE NA) by Nasal route. Active Cetirizine HCl (ZYRTEC PO) Take by mouth. Active B Complex Vitamins (VITAMIN-B COMPLEX PO) Take by mouth. Active ciprofloxacin-d examethasone (CIPRODEX) 0.3-0.1 % SuspensionIndic ations:Acute actinic otitis externa of left ear Apply 4 drops to affected ear(s) BID x 7 days 7.5 mL 10/31/2024 Active Active Problems Problem Noted Date Diagnosed Date BMI 39.0-39.9,adult 01/06/2025 Hypothyroidism 01/06/2025 Encounters Date Type Department Care Team Description 01/06/2025 8:40 AM CDT Urgent Care Visit [facility] [place] [address] [place] [address] Donna Do, SHEET METAL FABRICATOR, AUTOMOTIVE CONSULTANT Acute non-recurrent pansinusitis (Primary Dx); BMI 39.0-39.9,adult Discharge Disposition: Discharged to home or Selfcare 01/06/2025 Travel from Last 3 Months Immunizations Immunization Administration Dates Next Due DTAP VACCINE 08/03/1996, 3,1991,08/13,1991 Hepatitis A, Pediatric, Unsp ecified Formulation 04/27/2006,10/18/2005 Hepatitis B Vaccine, Pediatric/adolescent 01/18/1997,08/03/1996,06/27/1996 Hib Vaccine,unspecified Formulation 04/1992,1991,1991,07/02 Human Papillomavirus Vaccine (HPV), quadrivalent 05/23/2007,01/18/2007,10/31/2006 Inactivated Polio Vaccine 08/03/1996,11/1992,1991,07/02 Influenza Vaccine 02/26/2015 Influenza Vaccine, Quadrivalent, PF 12/22/2022,0 01/08/2021,12/28/2016 Influenza Vaccine,unspecifie d Formulation 01/18/2007 Influenza, Seasonal, Injecta ble, Undefined 02/26/2015,01/09/2014,01/28/2009,04/03,01/18/2007 MMR Vaccine 08/03/1996,06/16/1992 Meningococcal C Conjugate Vaccine 04/27/2006 Meningococcal Vaccine 04/27/2006 TDAP Vaccine 07/13/2021,10/18/2005 Varicella Vaccine Live 11/23/2017,10/26/2017 Yellow Fever Vaccine 05/08/2015 Social History Tobacco Use Types Packs/Day Years Used Date Smoking Tobacco: Every Day Cigarettes Smokeless Tobacco: Never Alcohol Use Standard Drinks/Week Comments Not Currently 0 (1 standard drink = 0.6 oz pur e alcohol) Sexually Active Control Partners Comments Yes Male Comments No Sex and Gender Information Value Date Recorded Sex Assigned at Not on file Legal Sex Female 3:36 PM CDT Gender Identity Not on file Sexual Orientation Not on file Last Filed Vital Signs Vital Sign Reading Time Taken Comments Blood Pressure 128/84 01/06/2025 8:39 AM CDT Pulse 81 01/06/2025 8:39 AM CDT Temperature 37 C (98.6 F) 01/06/2025 8:39 AM CDT Respiratory Rate 16 01/06/2025 8:39 AM CDT Oxygen Saturation 98% 01/06/2025 8:39 AM CDT Inhaled Oxygen Concentration - - Weight - - Height - - Body Mass Index - - Plan of Treatment Health Maintenance Due Date Last Done Comments Hepatitis C Virus (HCV) Screening 1991 Pneumococcal Immunization Combined (1 of 2 - PCV) 2010 Pap Smear 01/30/2012 Cervical Cancer Screening (CCS) 2021 HPV/Cotest 2021 Influenza Immunization (#1) 12/17/202409/2022, 01/08/2021, 12/28/2016, Additional history exists SARS-COV-2 Immunization ( season) 2024 03/27/2021, 06/10/2020, 05/13/2020 DTaP/Tdap/Td Immunization (8 - Td or Tdap) 07/14/2031 07/13/2021, 10/18/2005, 08/03/1996, Additional history exists Respiratory Syncytial Virus (RSV) Immunization (Adult) (1 - 1-dose 75+ series) 2066 Hepatitis B Immunization Completed 997, 08/03/1996, 06/27/1996 Meningococcal Immunization (ACWY) Aged Out 04/27/2006 No longer eligible based on patient's age to complete this topic Human Papillomavirus (HPV) Immunization Completed 05/23/2007, 01/18/2007, 10/31/2006 Rotavirus Immunization Aged Out No lo nger eligible based on patient's age to complete this topic Insurance [facility] Member Subscriber Plan / Payer (Ef fective 2023-Present) Name:Yesi Strong Member ID:[id number] Relation to Subscriber:Spouse Name:CHANTAL STRONG Subscriber ID:[id number] Date of :1990 (Home) Address: [address] [place] [address] [place] [address] Payer ID:[id number] Type:Not on file Address: [facility] [id number] [place] [id number] * Guarantor: [facility] Account Type Relation to Patient Date of Phone Billing Address Institutional Other [address] [place] [address] Care Teams Field Research Assistant Relationship Specialty Start Date End Date Provider, Unknown UNKNOWN PCP - General 02/08/22
--- OUTSIDE RECORDS SUMMARY | 2025-02-21 12:15 | XMS_ITS | Encounter Summary ---
Author Organization [facility] Address [address] [place] [address] Care Team Providers Care Pack Press Operator Name Role Phone Neno Carpio MD Primary Care Provider [phone] Encounter Details Date Type Department Care Team (Late st Contact Info) Description 01/11/2019 Lab Requisition [facility] [address] [facility] [place] [address] [phone] Jodee Cueto MD [address] [facility] [address] [place] [address] Social History Tobacco Use Types Packs/Day Years Used Date Smoking Tobacco: Never Assessed Comments Unknown Sex and Gender Information Value Date Recorded Sex Assigned at Not on file 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 Gender Identity Not on file Sexual Orientation Not on file documented as of this encounter Plan of Treatment Not on file documented as of this encounter Procedures Procedure Name Priority Date/Time Associated Diagnosis Comments DERMATOPATHOLOGY Routine 01/10/2019 12:0 0 AM CDT documented in this encounter Results * DERMATOPATHOLOGY (01/10/2019 12:00 AM CDT) Case Report Dermatopathology Report Case: [id number] Authorizing Provider: Jodee Cueto MD Collected: 01/10/2019 12:00 AM Ordering Location: [facility] Received: 01/11/2019 06:31 AM Pathologist: Shira Gibbs MD Specimen: Skin, right neck 12:36 PM CDT DERMATOPATHOLOGY LABORATORY Final Diagnosis Specimen A. SKIN, right neck: INTRADERMAL MELANOCYTIC NEVUS (D22.4) (see microscopic description) 12:36 PM CDT DERMATOPATHOLOGY LABORATORY at 1236 CDT Clinical History R/O nevus irritated. Irritated brown papule. 12:36 PM CDT DERMATOPATHOLOGY LABORATORY Gross Description Specimen A: Received is one formalin filled container labeled with the patient's name and designated right neck. The specimen consists of a shave measuring [id number]. Jar 0. 12:36 PM CDT DERMATOPATHOLOGY LABORATORY Microscopic Description Specimen A. SKIN, right neck: There are nests of cytologically bland melanocytes within the dermis that mature with depth. Additional deeper sections were obtained and reviewed. 12:36 PM CDT DERMATOPATHOLOGY LABORATORY Disclaimer An external and internal positive and negative controls are appropriate for the histochemical, immunohistochemical and immunofluorescence stain(s) in this case (if any), except where stated explicitly. The performance characteristics of the stain(s) cited in this report were developed and its performance characteristic determined by the Dermatopathology Laboratory at [facility], directed by Dr. Jovan Gibbs. These tests need not be, and therefore are not, approved by the [place] Food and Drug Administration. The tests are used for clinical purposes. Billing Codes Specimen Charges Stain Charges 01525 1 12:36 PM CDT DERMATOPATHOLOGY LABORATORY Embedded Images 12:36 PM CDT DERMATOPATHOLOGY LABORATORY Pathology/Cytolog y TISSUE SPECIMEN FROM SKIN / Unknown 01/10/2019 01/11/2019 6:31 AM CDT us Jodee Cueto MD LAB - PATHOLOGY/CYTOLOGY ORD ERABLES Final Result DERMATOPATHOLOGY LABORATORY [facility] - Department of Dermatology [address] [place] [address], 5th Floor [place] [address], [facility] [phone] documented in this encounter Visit Diagnoses Not on filedocumented in this encounter Care Teams Pack Press Operator Relationship Specialty Start Date End Date Neno Carpio MD [address] [facility] [address] [address] PCP - General 08/16/21 documented as of this encounter
--- NOTE | 2025-02-28 11:51 | WPDHOLTEREM ---
Holter/Event Monitor Holter/Event Monitor Date of procedure: 02/20/25 Holter/Event Procedure: 3-7 Day Holter Monitor Indications: Palpitations Conclusion: 1. 3 days holter monitor on 02/20/25. 2. Predominant rhythm is sinus rhythm. HR range 48-146 bpm; average HR 77 bpm. 3. There are rare premature supraventricular complexes and rare supraventricular couplets. There is 1 episode of supraventricular tachycardia at 146 bpm lasting 7 beats. 4. There are rare premature ventricular complexes, rare ventricular couplets, longest ventricular bigeminy was 23 seconds and longest ventricular trigeminy was 29.4 seconds. No ventricular tachycardia. 5. No significant pauses greater than 3 seconds. 6. Patient reports 1 episode of symptoms of irregular beats which demonstrates sinus rhythm at 84 bpm.
== END 2025-02-20 13:18 | disposition home or self-care (01) ==
LOC: ANHCARD 13:19
PROVIDERS: PCP Nurse Practitioner Family; Visit Provider Nurse Practitioner Family
DX: R00.2 Palpitations (principal)
CPT/HCPCS: 93242